=== PATIENT | female | born 1960 | race Caucasian/White ===

== ENCOUNTER 2023-02-23 08:23 | Outpatient (CLI) | payer OTHER, MEDICARE, SELFPAY | END 2023-02-23 08:24 | disposition home or self-care (01) | PROVIDERS: PCP Family Medicine; Visit Provider Family Medicine | DX: M54.16 Radiculopathy, lumbar region (principal); M51.36 Other intervertebral disc degeneration, lumbar region | CPT/HCPCS: 64483; J1100; Q9966 ==

== ENCOUNTER 2023-08-17 12:48 | Outpatient (CLI) | payer OTHER, MEDICARE, SELFPAY | END 2023-08-17 12:49 | disposition home or self-care (01) | LOC: INJ CL 12:50 | PROVIDERS: PCP Family Medicine; Visit Provider Family Medicine | DX: M54.16 Radiculopathy, lumbar region (principal); M51.36 Other intervertebral disc degeneration, lumbar region | CPT/HCPCS: 64483; Q9966 ==

== ENCOUNTER 2023-11-30 07:57 | Outpatient (CLI) | payer OTHER, MEDICARE, SELFPAY | END 2023-11-30 07:58 | disposition home or self-care (01) | LOC: INJ CL 07:59 | PROVIDERS: PCP Family Medicine; Visit Provider Family Medicine | DX: M47.816 Spondylosis without myelopathy or radiculopathy, lumbar region (principal) | CPT/HCPCS: 64493; 64494; Q9966 ==

== ENCOUNTER 2024-05-30 13:45 | Outpatient (CLI) | payer OTHER, MEDICARE, SELFPAY ==
--- OUTSIDE RECORDS SUMMARY | 2024-05-30 07:04 | XMS_ITS | Referral Summary ---
Author Organization [facility] Address [address] [place] [address] Encounter Date(s): 03/16/19 - 03/19/19 [facility] [address] [place] [address]- Encounter Diagnosis Closed displaced trimalleolar fracture of left ankle(Discharge Diagnosis) - 03/17/19 Discharge Disposition: Home Attending Physician: ITZ LOVE MD Admitting Physician: ITZ LOVE MD Vital Signs Most recent to oldest [Reference Range]: 1 2 3 Temperature Temporal [36.3-38 DegC] 36.3 DegC (03/19/19 11:29 AM) 36.5 DegC (03/19/19 7:07 AM) 36.6 DegC (03/19/19 5:00 AM) Heart Rate [50-100 bpm] 92 bpm (03/17/19 6:10 PM) 94 bpm (03/17/19 6:00 PM) 102 bpm *HI* (03/17/19 5:50 PM) Pulse Rate [40-100 bpm] 73 bpm (03/19/19 11:30 AM) 67 bpm (03/19/19 7:08 AM) 74 bpm (03/19/19 5:00 AM) Heart Rhythm Monitored Sinus Rhythm (03/17/19 6:10 PM) Sinus Rhythm (03/17/19 6:00 PM) Sinus Rhythm (03/17/19 5:50 PM) Respiratory Rate [11-21 br/min] 16 br/min (03/19/19 11:29 AM) 16 br/min (03/19/19 7:07 AM) 16 br/min (03/19/19 5:00 AM) Oxymetry Monitoring Spot Check (03/19/19 11:29 AM) Spot Check (03/19/19 7:07 AM) Spot Check (03/19/19 5:00 AM) Oxygen Saturation [89-101 %] 94 % (03/19/19 11:30 AM) 92 % (03/19/19 7:08 AM) 91 % (03/19/19 5:00 AM) End Tidal CO2 0 mmHg (03/19/19 5:00 AM) 0 mmHg (03/18/19 11:00 PM) 0 mmHg (03/18/19 8:00 PM) Oxygen Delivery Room air (03/19/19 11:29 AM) Room air (03/19/19 7:07 AM) Room air (03/19/19 5:00 AM) Oxygen Flow 1 L/min (03/18/19 4:49 AM) 1 L/min (03/17/19 9:00 PM) 1 L/min (03/17/19 8:17 PM) Cuff BP Mean 100 mmHg (03/19/19 11:29 AM) 86 mmHg (03/19/19 7:07 AM) 78 mmHg (03/19/19 5:00 AM) SpO2 Probe Site Hand, left (03/17/19 6:10 PM) Hand, left (03/17/19 6:00 PM) Hand, left (03/17/19 5:50 PM) BP Site Right upper (03/19/19 5:00 AM) Right upper (03/18/19 11:00 PM) Right upper (03/18/19 8:00 PM) Monitor Alarms On (03/17/19 6:10 PM) On (03/17/19 6:00 PM) On (03/17/19 5:50 PM) Vital Signs Note pt working with PT then d/c (03/19/19 1:43 PM) Pt just given pain meds, OT will come back in about 30 mins to work with pt (03/19/19 10:09 AM) changed to RA (03/17/19 9:00 PM) Kyle: Respiratory 2 - Can Deep Breath and Cough Freely (03/17/19 1:03 AM) 2 - Can Deep Breath and Cough Freely (03/17/19 12:58 AM) 2 - Can Deep Breath and Cough Freely (03/17/19 12:56 AM) Kyle: Circulatory 2 - BP w/in 20% of presedation BP (03/17/19 1:03 AM) 2 - BP w/in 20% of presedation BP (03/17/19 12:58 AM) 2 - BP w/in 20% of presedation BP (03/17/19 12:56 AM) Kyle: Consciousness 2 - Fully Awake (03/17/19 1:03 AM) 2 - Fully Awake (03/17/19 12:58 AM) 2 - Fully Awake (03/17/19 12:56 AM) Kyle: O2 Saturation 1 - O2 Sat > 90% on Oxygen (03/17/19 1:03 AM) 1 - O2 Sat > 90% on Oxygen (03/17/19 12:58 AM) 1 - O2 Sat > 90% on Oxygen (03/17/19 12:56 AM) Kyle: Activity 2 - Moves 4 Ext. Volun &/or Commanded (03/17/19 1:03 AM) 2 - Moves 4 Ext. Volun &/or Commanded (03/17/19 12:58 AM) 2 - Moves 4 Ext. Volun &/or Commanded (03/17/19 12:56 AM) Kyle: Calculation 9 (03/17/19 1:03 AM) 9 (03/17/19 12:58 AM) 9 (03/17/19 12:56 AM) Blood Pressure 135/83mmHg (03/19/19 11:29 AM) 119/70mmHg (03/19/19 7:07 AM) 112/61mmHg (03/19/19 5:00 AM) Height 160.02 cm (03/17/19 6:49 PM) 168 cm (03/16/19 8:05 PM) 168 cm (03/16/19 8:01 PM) Weight 99.6 kg (03/19/19 5:00 AM) 102 kg (03/18/19 4:00 AM) 98.8 kg (03/17/19 6:45 PM) CLINICALWEIGHT 98.8 kg (03/17/19 6:49 PM) 84 kg (03/16/19 8:05 PM) 84 kg (03/16/19 8:01 PM) Weight Type Bed Scale (03/19/19 5:00 AM) Bed Scale (03/18/19 4:00 AM) Bed Scale (03/17/19 6:45 PM) Dosing Weight Type Bed Scale (03/17/19 6:49 PM) Emergency Stated / Estimated (03/16/19 8:05 PM) Emergency Stated / Estimated (03/16/19 8:01 PM) BSA calculated 2.1 m2 (03/17/19 6:49 PM) Body Mass Index 38.58 kg/m2 (03/17/19 6:49 PM) 29.76 kg/m2 (03/16/19 8:05 PM) 29.76 kg/m2 (03/16/19 8:01 PM) [place] Body Weight 52.40 kg (03/17/19 6:49 PM) 59.62 kg (03/16/19 8:05 PM) 59.62 kg (03/16/19 8:01 PM) Height Obtained Patient stated (03/17/19 6:49 PM) Patient stated (03/16/19 8:05 PM) Patient stated (03/16/19 8:01 PM) Problem List Diagnosis Diagnosis Type Effective Dates Health Status Clinical Service Informant Closed displaced trimalleolar fracture of left ankle Discharge Diagnosis 03/17/19 Non-Specified Allergies, Adverse Reactions, Alerts No Known Allergies Medications Aspirin Enteric Coated 325 mg oral delayed release tablet 325 mg = 1 Tab(s), Oral, Daily, # 30 Tab(s), Refill(s) 0, Pharmacy: [facility]/pharmacy #[id number] Start Date: 03/19/19 Stop Date: 04/18/19 Status: Ordered CeleBREX 200 mg oral capsule 200 mg = 1 Cap(s), Oral, BID, # 60 Cap(s), Refill(s) 0 Start Date: 03/16/19 Stop Date: 04/15/19 Status: Ordered Cymbalta 60 mg = 1 Cap(s), Oral, Daily, Refill(s) 0 Start Date: 03/17/19 Stop Date: 04/16/19 Status: Ordered gabapentin (Neurontin), 300 mg = 1 Cap(s), Oral, TID, Refill(s) 0 Start Date: 03/16/19 Stop Date: 04/15/19 Status: Ordered gabapentin (Neurontin), 600 mg = 2 Cap(s), Oral, TID, Refill(s) 0 Start Date: 03/16/19 Stop Date: 03/17/19 Status: Completed Misc Prescription Standard wheelchair, See Instructions, with left leg lift, # 1 Each, 0 Refill(s) Start Date: 03/19/19 Status: Or[place] [facility] Rolling knee scooter, See Instructions, Nonweightbearing left foot/ankle. OK to bear weight throughknee, # 1 Each, 0 Refill(s) Start Date: 03/18/19 Status: Ordered [facility] Walker, See Instructions, Disp 1 rolling walker, # 1 Each, 0 Refill(s) Start Date: 03/18/19 Status: Ordered [place] 7.5/325 (HYDROcodone-acetaminophen) 1 Tab(s), Oral, Q6H, PRN PRN Pain, # 30 Tab(s), Refill(s) 0, Pharmacy: [facility]/pharmacy #[id number] Start Date: 03/19/19 Stop Date: 04/18/19 Status: Ordered pravastatin (Pravachol), 10 mg = 1 Tab(s), Oral, HS, Refill(s) 0 Start Date: 03/16/19 Stop Date: 04/15/19 Status: Ordered promethazine 25 mg oral tablet 25 mg = 1 Tab(s), Oral, Q6HRS, PRN as needed for nausea, # 12 Tab(s), Refill(s) 1, Pharmacy: [facility]/pharmacy #[id number] Start Date: 03/19/19 Stop Date: 04/18/19 Status: Ordered traMADol (Ultram), 50 mg = 1 Tab(s), Oral, BID, PRN Pain, Refill(s) 0 Start Date: 03/16/19 Stop Date: 04/15/19 Status: Ordered traZODone 50 mg = 1 Tab(s), Oral, HS Start Date: 03/17/19 Stop Date: 04/16/19 Status: Ordered traZODone 50 mg oral tablet 50 mg = 1 Tab(s), Oral, HS, # 30 Tab(s), Refill(s) 0 Start Date: 03/16/19 Stop Date: 03/17/19 Status: Completed Results Hematology Most recent to oldest [Reference Range]: 1 HGB [12.0-16.0 g/dL] 13.5 g/dL (03/16/19 8:18 PM) HCT [36.0-48.0 %] 40.5 % (03/16/19 8:18 PM) WBC [4.0-11.0 x10^3/uL] 7.9 x10^3/uL (03/16/19 8:18 PM) PLT [139-411 x10^3/uL] 227 x10^3/uL (03/16/19 8:18 PM) RBC [4.20-5.40 x10^6/uL] 4.85 x10^6/uL (03/16/19 8:18 PM) MCV [79.9-97.7 fL] 83.6 fL (03/16/19 8:18 PM) MCH [27.4-33.4 pg] 27.8 pg (03/16/19 8:18 PM) MCHC [32.0-36.0 g/dL] 33.3 g/dL (03/16/19 8:18 PM) MPV [7.9-11.9 fL] 8.6 fL (03/16/19 8:18 PM) RDW [11.5-15.5 %] 13.7 % (03/16/19 8:18 PM) Lymph Auto [24.0-44.0 %] 24.8 % (03/16/19 8:18 PM) Neutro Auto [36.0-66.0 %] 62.8 % (03/16/19 8:18 PM) Sutter Auto [1.0-7.0 %] 9.9 % *HI* (03/16/19 8:18 PM) Eos Auto [0.0-6.0 %] 2.1 % (03/16/19 8:18 PM) Baso Auto [0.0-2.0 %] 0.4 % (03/16/19 8:18 PM) Abs Neutro Auto [1.8-8.0 x10^3/mm^3] 5.0 x10^3/mm^3 (03/16/19 8:18 PM) Abs Lymph Auto [1.0-4.8 x10^3/mm^3] 2.0 x10^3/mm^3 (03/16/19 8:18 PM) Abs Sutter Auto [0.0-0.4 x10^3/mm^3] 0.8 x 10^3/mm^3 *HI* (03/16/19 8:18 PM) Abs Eos Auto [0.0-0.5 x10^3/mm^3] 0.2 x1 0^3/mm^3 (03/16/19 8:18 PM) Abs Baso Auto [0.0-0.2 x10^3/mm^3] 0.0 x 10^3/mm^3 (03/16/19 8:18 PM) PT [9.6-13.2 second(s)] 11.0 second(s) (03/16/19 8:18 PM) INR [1.00-3.00] 0.97 *LOW* (03/16/19 8:18 PM) Chemistry Most recent to oldest [Reference Range]: 1 Sodium [136-145 mmol/L] 142 mmol/L (03/16/19 8:18 PM) Potassium [3.4-4.5 mmol/L] 3.6 mmol/L (03/16/19 8:18 PM) Chloride [96-107 mmol/L] 106 mmol/L (03/16/19 8:18 PM) CO2 [22-30 mmol/L] 23 mmol/L (03/16/19 8:18 PM) Anion Gap [6-16 mmol/L] 13 mmol/L (03/16/19 8:18 PM) Calcium [8.4-10.2 mg/dL] 9.4 mg/dL (03/16/19 8:18 PM) Glucose [65-105 mg/dL] 143 mg/dL *HI* (03/16/19 8:18 PM) BUN [7-17 mg/dL] 26 mg/dL *HI* (03/16/19 8:18 PM) Creatinine [0.70-1.20 mg/dL] .80 mg/dL (03/16/19 8:18 PM) eGFR [>=60 mL/min/1.73m^2] >60 mL/min/1. 73m^2 1 (03/16/19 8:18 PM) eCrCl 84 mL/min 2 *NA* (03/16/19 8:18 PM) 1Result Comment: If the patient is , the result should be multiplied by 1.210. Estimated GFR values of 60 mL/min/1.73 m(sqr) and below have more clinical implications for classification of kidney function than values above this level. The equation has been most extensively evaluated in people with chronic kidney disease and reduced GFR and is less accurate for persons with normal or mildly impaired kidney function. The eGFR equation has not been validated for use outside the age range of 18-70, for women, patients with serious comorbid conditions, or persons with extremes of body size, muscle mass, or nutritional status. Application of the equation to these patient groups may lead to errors in GFR estimation. 2Result Comment: Estimated Creatinine Clearance calculated with Cockroft-Gault formula = 0.85*(140-Age)* Obese DW/72*SrCr. Calculated by Discern Expert at that time using: Obese DW = 59.90 + 0.4 (84 -59.90) kg, SrCr = 0.8 mg/dL. The Cockcroft-Gault equation estimates creatinine clearance (eCrCl). Ph armacokinetics studies over the years have used this equation to determine level of kidney functionfor dosage adjustment in the FDA approved labeling of drugs. As a result, it has become a standard for drug dosing. The MDRD study equation estimates glomerular filtration rate (eGFR). Studies have found that this equation is a more accurate estimate of the glomerular filtration rate than the Cockcroft-Gault equation. As a result, it has become a standard for staging chronic kidney disease. The National Kidney Disease Education Program recommends using either eCrCl or eGFR for drug dosing. However, published studies report that drug dosages determined by the two equations do not agree in 10-40% of cases. For times when the two equations do not agree, choose the dosing regimen that optimizesthe risk:benefit ratio given the patient's specific clinical scenario. Immunizations Given and Recorded Vaccine Date Status Refusal Reason influenza virus vaccine, inactivated 02/28/19 Facundo rded Social History Social History Type Response Smoking Status Never (less than 100 in lifetime) entered on: 03/19/19 Functional Status FUNCTIONAL 03/19/19 Personal Care Assistance Level Moderate assistance Activity Assistance Minimum assistance COGNITIVE 03/19/19 Level of Consciousness Alert, Awake, Follows Commands Orientation Oriented x 4 Affect/Behavior Calm, Cooperative 03/17/19 General Assessment Comment unable to pal fowler left pedal pulse due to splint, cap refill is immediate. 03/17/19 General Assessment WDL Assessment and Plan Extracted from: Title:H & P Author:ITZ LOVE MD Date: Closed displaced trimalleola r fracture of left ankle S82.852A Orders: CT Ext Lower w/o Contrast Lt NPO Addendum by MARK LOVE MD AM on March 17, 2019 08:57:[address] shows a pilon fracture, she will require staged surgery with plating of fibula and ex fix today with 2nd stage being ORIF of the tibia fracture in 1-2 weeks when soft tissue allows. She will undergo the first stage today so she will remain NPO. Hospital Discharge Instructions Patient Education 03/16/2019 19:53:56 Cast or Splint Care Cast or Splint Care Casts and splints support injured limbs and keep bones from moving while they heal. It is importantto care for your cast or splint at home. ?? HOME CARE INSTRUCTIONS ?Keep the cast or splint uncovered during the drying period. It can take 24 to 48 hours to dry if it is made of plaster. A fiberglass cast will dry in less than 1 hour. ?Do not rest the cast on anything harder than a pillow for the first 24 hours. ?Do not put weight on your injured limb or apply pressure to the cast until your health care provider gives you permission. ?Keep the cast or splint dry. Wet casts or splints can lose their shape and may not support the limb as well. A wet cast that has lost its shape can also create harmful pressure on your skin when it dries. Also, wet skin can become infected. ?Cover the cast or splint with a plastic bag when bathing or when out in the rain or snow. If the cast is on the trunk of the body, take sponge baths until the cast is removed. ?If your cast does become wet, dry it with a towel or a blow dryer on the cool setting only. ?Keep your cast or splint clean. Soiled casts may be wiped with a moistened cloth. ?Do not place any hard or soft foreign objects under your cast or splint, such as cotton, toilet paper, lotion, or powder. ?Do not try to scratch the skin under the cast with any object. The object could get stuck inside the cast. Also, scratching could lead to an infection. If itching is a problem, use a blow dryer on a cool setting to relieve discomfort. ?Do not trim or cut your cast or remove padding from inside of it. ?Exercise all joints next to the injury that are not immobilized by the cast or splint. For example, if you have a long leg cast, exercise the hip joint and toes. If you have an arm cast or splint, exercise the shoulder, elbow, thumb, and fingers. ?Elevate your injured arm or leg on 1 or 2 pillows for the first 1 to 3 days to decrease swelling and pain.??It is best if you can comfortably elevate your cast so it is higher than your heart. SEEK MEDICAL CARE IF: ?Your cast or splint cracks. ?Your cast or splint is too tight or too loose. ?You have unbearable itching inside the cast. ?Your cast becomes wet or develops a soft spot or area. ?You have a bad smell coming from inside your cast. ?You get an object stuck under your cast. ?Your skin around the cast becomes red or raw. ?You have new pain or worsening pain after the cast has been applied. SEEK IMMEDIATE MEDICAL CARE IF: ?You have fluid leaking through the cast. ?You are unable to move your fingers or toes. ?You have discolored (blue or white), cool, painful, or very swollen fingers or toes beyond the cast. ?You have tingling or numbness around the injured area. ?You have severe pain or pressure under the cast. ?You have any difficulty with your breathing or have shortness of breath. ?You have chest pain. This information is not intended to replace advice given to you by your health care provider. Make sure you discuss any questions you have with your health care provider. Document Released: 05/14/2001 Document Revised: 03/07/2014 Document Reviewed: 11/23/2013 [employer] Patient Education ??2016 [employer] Medial or Posterior Malleolus Fracture Treated With ORIF, Care After Medial or Posterior Malleolus Fracture Treated With ORIF, Care After Refer to this sheet in the next few weeks. These instructions provide you with information about caring for yourself after your procedure. Your health care provider may also give you more specific instructions. Your treatment has been planned according to current medical practices, but problems sometimes occur. Call your health care provider if you have any problems or questions after your procedure. WHAT TO EXPECT AFTER THE PROCEDURE After your procedure, it is common to have: ?Pain. ?Swelling. HOME CARE INSTRUCTIONS If You Have a Cast: ?Do not stick anything inside the cast to scratch your skin. Doing that increases your risk of infection. ?Check the skin around the cast every day. Report any concerns to your health care provider. You may put lotion on dry skin around the edges of the cast. Do not apply lotion to the skin underneath the cast. Bathing ?Cover the cast with a watertight plastic bag to protect it from water while you take a bath or a shower. Do not let the cast get wet unless you have a waterproof cast. ?Keep the bandage (dressing) dry until your health care provider says it can be removed. Takesponge baths only. Ask your health care provider when you can start showering or taking a bath. Incision Care ?There are many different ways to close and cover an incision, including stitches, skin glue,and adhesive strips. Follow instructions from your health care provider about: ?Incision care. ?Bandage (dressing) changes and removal. ?Incision closure removal. ?Check your incision area every day for signs of infection. Watch for: ?Redness, swelling, or pain. ?Fluid, blood, or pus. Managing Pain, Stiffness, and Swelling ?If directed, apply ice to the injured area. ?Put ice in a plastic bag. ?Place a towel between your skin and the bag. ?Leave the ice on for 20 minutes, 2???3 times per day. ?Move your toes often to avoid stiffness and to lessen swelling. ?Raise the injured area above the level of your heart while you are sitting or lying down. Driving ?Do not drive or operate heavy machinery while taking pain medicine. ?Do not drive while wearing a cast on a hand or foot that you use for driving. Activity ?Return to your normal activities as directed by your health care provider. Ask your health care provider what activities are safe for you. ?Perform [id number] exercises only as directed by your health care provider. Safety ?Do not use the injured limb to support your body weight until your health care provider saysthat you can. Use crutches as directed by your health care provider. General Instructions ?Do not put pressure on any part of the cast until it is fully hardened. This may take several hours. ?Keep your cast clean and dry. ?Do not use any tobacco products, including cigarettes, chewing tobacco, or electronic cigarettes. Tobacco can delay bone healing. If you need help quitting, ask your health care provider. ?Take medicines only as directed by your health care provider. ?Keep all follow-up visits as directed by your health care provider. This is important. SEEK MEDICAL CARE IF: ?You have a fever. ?Your pain medicine is not helping. ?You have redness, swelling, or pain at the site of your incision. ?You have fluid, blood, or pus coming from your incision or seeping through your cast. ?You notice a bad smell coming from the incision or dressings. SEEK IMMEDIATE MEDICAL CARE IF: ?You have chest pain or difficulty breathing. ?You have numbness or tingling in your foot or leg. ?Your foot becomes cold, pale, or blue. This information is not intended to replace advice given to you by your health care provider. Make sure you discuss any questions you have with your health care provider. Document Released: 02/24/2006 Document Revised: 10/01/2015 Document Reviewed: 04/10/2015 [employer] Patient Education ??2016 [employer] Follow Up Care 03/16/2019 19:53:56 With:ITZ LOVE Address: [address] [place] [id number] Business (1) When:As Instructed Comments:Call for appointment.
--- OUTSIDE RECORDS SUMMARY | 2024-05-30 07:04 | XMS_ITS | Referral Summary ---
Author Organization [facility] Address [address] [place] [address] Encounter Date(s): 04/03/19 - 04/04/19 [facility] [address] [place] [address]- Encounter Diagnosis Closed displaced pilon fracture of tibia with routine healing(Discharge Diagnosis) - 04/03/19 Displaced pilon fracture of left tibia, initial encounter for closed fracture (Final) - Presence of other bone and tendon implants(Final) - Other specified postprocedural states(Final) - Discharge Disposition: Home Attending Physician: PRERNA STEVEN MD Referring Physician: PRERNA STEVEN MD Vital Signs Most recent to oldest [Reference Range]: 1 2 3 Temperature Temporal [36.3-38 DegC] 35.7 DegC *LOW* (04/04/19 11:00 AM) 36.6 DegC (04/04/19 7:53 AM) 36.8 DegC (04/04/19 4:00 AM) Heart Rate [50-100 bpm] 80 bpm (04/03/19 5:35 PM) 76 bpm (04/03/19 5:25 PM) 96 bpm (04/03/19 5:15 PM) Pulse Rate [40-100 bpm] 84 bpm (04/04/19 11:00 AM) 81 bpm (04/04/19 7:54 AM) 87 bpm (04/04/19 4:14 AM) Heart Rhythm Monitored Sinus Rhythm (04/03/19 8:00 PM) Sinus Rhythm (04/03/19 5:25 PM) Sinus tach (04/03/19 12:35 PM) Respiratory Rate [11-21 br/min] 16 br/min (04/04/19 11:00 AM) 16 br/min (04/04/19 7:53 AM) 18 br/min (04/04/19 4:00 AM) Oxymetry Monitoring Spot Check (04/04/19 11:00 AM) Spot Check (04/04/19 7:53 AM) Spot Check (04/04/19 4:00 AM) Oxygen Saturation [89-101 %] 99 % (04/04/19 11:00 AM) 92 % (04/04/19 8:18 AM) 93 % (04/04/19 7:54 AM) Oxygen Delivery Room air (04/04/19 11:00 AM) Room air (04/04/19 8:18 AM) Room air (04/04/19 7:53 AM) Oxygen Flow 2 L/min (04/04/19 4:00 AM) 2 L/min (04/03/19 7:21 PM) 3 L/min (04/03/19 5:25 PM) Cuff BP Mean 90 mmHg (04/04/19 7:53 AM) 83 mmHg (04/04/19 4:13 AM) 92 mmHg (04/04/19 2:36 AM) SpO2 Probe Site Hand, left (04/03/19 5:25 PM) Hand, right (04/03/19 12:35 PM) Hand, right (04/03/19 12:27 PM) Monitor Alarms On (04/03/19 5:25 PM) On (04/03/19 4:25 PM) On (04/03/19 4:10 PM) Vital Signs Note Report taken from MADDISON Oconnor. (04/03/19 6:00 PM) REPORT TO FARHAD JOY (04/03/19 12:34 PM) PACU (04/03/19 12:06 PM) Blood Pressure 119/64mmHg (04/04/19 11:00 AM) 122/74mmHg (04/04/19 7:53 AM) 114/67mmHg (04/04/19 4:13 AM) Height 160 cm (04/03/19 8:57 AM) CLINICALWEIGHT 85.5 kg (04/03/19 8:57 AM) Dosing Weight Type Standing Scale (04/03/19 8:57 AM) Body Mass Index 33.4 kg/m2 (04/03/19 8:57 AM) [place] Body Weight 52.38 kg (04/03/19 8:57 AM) Height Obtained Patient stated (04/03/19 8:57 AM) Problem List Condition Effective Dates Status Health Status Inform ant Postoperative visit(Confirmed) Active Diagnosis Diagnosis Type Effective Dates Health Status Cl inical Service Informant Closed displaced pilon fracture of tibia with routine healing Discharge Diagnosis 04/03/19 Non-Specified Allergies, Adverse Reactions, Alerts Substance Reaction Severity Status Ancef Rash Active Medications aspirin 81 mg oral tablet 81 mg = 1 Tab(s), Oral, BID, # 60 Tab(s), Refill(s) 0, Pharmacy: [facility] Start Date: 04/03/19 Stop Date: 05/03/19 Status: Ordered cephalexin 500 mg oral capsule 500 mg = 1 Cap(s), Oral, Q8HRS, X 10 Day(s), # 30 Cap(s), Refill(s) 0, Pharmacy: [facility] Start Date: 04/03/19 Stop Date: 04/13/19 Status: Ordered [place] 10/325 (HYDROcodone-acetaminophen) See Instructions, PRN PRN Pain, 1/2 to 1 Tab(s) Oral Q6H, # 20 Tab(s), Refill(s) 0, Pharmacy: [facility] Start Date: 04/04/19 Stop Date: 04/11/19 Status: Ordered [place] 10/325 (HYDROcodone-acetaminophen) 1 Tab(s), Oral, Q6H, PRN PRN Pain, Not to exceed 4 tabs/24 hours = 40 Morphine mg Equivalents, # 30Tab(s), Refill(s) 0, Pharmacy: [facility] Start Date: 04/03/19 Stop Date: 04/03/19 Status: Discontinued Immunizations Given and Recorded Vaccine Date Status Refusal Reason influenza virus vaccine, inactivated 02/28/19 Facundo rded Social History Social History Type Response Smoking Status Never (less than 100 in lifetime) entered on: 03/30/19 Functional Status FUNCTIONAL 04/04/19 Activity Assistance One person assist 04/04/19 Personal Care Assistance Level Minimal a ssistance COGNITIVE 04/04/19 Affect/Behavior Calm, Appropriate, Cooperative 04/04/19 Level of Consciousness Alert, Awake, Follows Commands Orientation Oriented x 4 04/03/19 General Assessment Comment left foot pin k and warm Hospital Discharge Instructions Patient Education 03/30/2019 11:05:29 Preventing Constipation After Surgery Preventing Constipation After Surgery Constipation is when a person has fewer than 3 bowel movements a week; has difficulty having a bowel movement; or has stools that are dry, hard, or larger than normal. Many things can make constipation likely after surgery. They include: ?Medicines, especially numbing medicines (anesthetics) and very strong pain medicines called narcotics. ?Feeling stressed because of the surgery. ?Eating different foods than normal. ?Being less active. Symptoms of constipation include: ?Having fewer than 3 bowel movements a week. ?Straining to have a bowel movement. ?Having hard, dry, or xukqmo-axfr-suqavz stools. ?Feeling full or bloated. ?Having pain in the lower abdomen. ?Not feeling relief after having a bowel movement. HOME CARE INSTRUCTIONS Diet ?Eat foods that have a lot of fiber. These include fruits, vegetables, whole grains, and beans. Limit foods high in fat and processed sugars. These include finnish fries, hamburgers, cookies, and candy. ?Take a fiber supplement as directed. If you are not taking a fiber supplement and think thatyou are not getting enough fiber from foods, talk to your health care provider about adding a fibersupplement to your diet. ?Drink clear fluids, especially water. Avoid drinking alcohol, caffeine, and soda. These can make constipation worse. ?Drink enough fluids to keep your urine clear or pale yellow. Activity ?After surgery, return to your normal activities slowly or when your health care provider says it is okay. ?Start walking as soon as you can. Try to go a little farther each day. ?Once your health care provider approves, do some sort of regular exercise. This helps prevent constipation. Bowel Movements ?Go to the restroom when you have the urge to go. Do not hold it in. ?Try drinking something hot to get a bowel movement started. ?Keep track of how often you use the restroom. If you miss 2???3 bowel movements, talk to your health care provider about medicines that prevent constipation. Your health care provider may suggest a stool softener, laxative, or fiber supplement. ?Only take plic-mam-npcrduy or prescription medicines as directed by your health care provider. ?Do not take other medicines without talking to your health care provider first. If you become constipated and take a medicine to make you have a bowel movement, the problem may get worse. Other kinds of medicine can also make the problem worse. SEEK MEDICAL CARE IF: ?You used stool softeners or laxatives and still have not had a bowel movement within 24???48hours after using them. ?You have not had a bowel movement in 3 days. SEEK IMMEDIATE MEDICAL CARE IF: ?Your constipation lasts for more than 4 days or gets worse. ?You have bright red blood in your stool. ?You have abdominal or rectal pain. ?You have very bad cramping. ?You have thin, pencil-like stools. ?You have unexplained weight loss. ?You have a fever or persistent symptoms for more than 2???3 days. ?You have a fever and your symptoms suddenly get worse. This information is not intended to replace advice given to you by your health care provider. Make sure you discuss any questions you have with your health care provider. Document Released: 09/11/2013 Document Revised: 06/07/2015 Document Reviewed: 09/11/2013 Else[employer] Interactive Patient Education ??2016 [employer] Tibial Fracture, Adult Tibial Fracture, Adult A tibial fracture is a break in the larger bone of your lower leg (tibia). This bone is also calledthe quintero bone. CAUSES ?Low-energy injuries, such as a fall from ground level. ?High-energy injuries, such as motor vehicle injuries or high-speed sports collisions. RISK FACTORS ?Jumping activities. ?Repetitive stress, such as long-distance running. ?Participation in sports. ?Osteoporosis. ?Advanced age. ?? SIGNS AND SYMPTOMS ?Pain. ?Swelling. ?Inability to put weight on your injured leg. ?Bone deformities at the site of your injury. ?Bruising. ?? DIAGNOSIS A tibial fracture can usually be diagnosed using X-rays. TREATMENT A tibial fracture will often be treated with simple immobilization. A cast or splint will be used on your leg to keep it from moving while it heals. If the injury caused parts of the bone to move outof place, your health care provider may reposition those parts before putting on your cast or splint. The cast or splint will remain in place until your health care provider thinks the bone has healed well enough. Then you can begin dkyhs-gn-jrlaab exercises to regain your knee motion. For severe injuries, surgery is sometimes needed to insert plates or screws into the injured area. HOME CARE INSTRUCTIONS ?If you have a plaster or fiberglass cast: ?Do not try to scratch the skin under the cast using sharp or pointed objects. ?Check the skin around the cast every day. You may put lotion on any red or sore areas. ?Keep your cast dry and clean. ?If you have a plaster splint: ?Wear the splint as directed. ?Loosen the elastic around the splint if your toes become numb, tingle, or turn cold or blue. ?Do not put pressure on any part of your cast or splint until it is fully hardened. ?Use a plastic bag to protect your cast or splint during bathing. Do not lower the cast or splint into water. ?Use crutches as directed. ?Take medicines only as directed by your health care provider. ?Keep all follow-up visits as directed by your health care provider. This is important. ?? SEEK MEDICAL CARE IF: ?Your pain is becoming worse rather than better or is not controlled with medicines. ?You have increased swelling or redness in your foot. ?You begin to lose feeling in your foot or toes. ?? SEEK IMMEDIATE MEDICAL CARE IF: ?Your foot or toes on the injured side feel cold or turn blue. ?You develop severe pain in your injured leg, especially if the pain is increased with movement of your toes. ?? MAKE SURE YOU: ?Understand these instructions. ?Will watch your condition. ?Will get help right away if you are not doing well or get worse. ?? This information is not intended to replace advice given to you by your health care provider. Make sure you discuss any questions you have with your health care provider. Document Released: 02/09/2002 Document Revised: 10/01/2015 Document Reviewed: 07/11/2014 [employer] Interactive Patient Education ??2016 [employer] Tibial Plateau Fracture Treated With Open Reduction, Care After Tibial Plateau Fracture Treated With Open Reduction, Care After Refer to this sheet in [...] THE PROCEDURE After your procedure, it is typical to have the following: ?Pain. ?Swelling. ?Stiffness. ?Tingling or numbness. HOME CARE INSTRUCTIONS If You Have a Brace: ?Wear it as directed by your health care provider. ?Tell your health care provider if it becomes loose or feels uncomfortable. Bathing ?Keep your bandage (dressing) dry until your health care provider says that it can be removed. Take sponge baths only. Ask the surgeon when you can start showering and bathing. Managing Pain, Stiffness, and Swelling ?If directed, apply ice to the injured area. ?Put ice in a plastic bag. ?Place a towel between your skin and the bag. ?Leave the ice on for 20 minutes, 2???3 times per day. ?Raise the injured area above the level of your heart while you are sitting or lying down. Driving ?Do not drive or operate heavy machinery while taking pain medicine. ?Do not drive while wearing a brace on a leg that you use for driving. Activity ?Return to your normal activities as directed by your health care provider. Ask your health care provider what activities are safe for you. ?Perform cwkmc-ln-xklfey exercises only as directed by your health care provider. Safety ?Do not use the injured limb to support your body weight until your health care provider saysthat you can. Use crutches or a walker as directed by your health care provider. General Instructions ?Do not use any tobacco products, including cigarettes, chewing tobacco, or electronic cigarettes. Tobacco can delay bone healing. If you need help quitting, ask your health care provider. ?There are many different ways to close and cover an incision, including stitches (sutures), skin glue, and adhesive strips. Follow your health care provider's instructions about: ?Incision care. ?Bandage (dressing) changes and removal. ?Incision closure removal. ?Check your incision area every day for signs of infection. Watch for redness, swelling, or discharge. ?Take medicines only as directed by your health care provider. ?Keep all follow-up visits as directed by your health care provider. This is important. SEEK MEDICAL CARE IF: ?You have a fever. ?Your pain medicine is not helping. ?You have pain, warmth, and tenderness in your lower leg (calf). ?You have bleeding that comes through your dressing. SEEK IMMEDIATE MEDICAL CARE IF: ?You have drainage, redness, swelling, or pain at your incision. ?You notice a bad smell coming from the incision area or the dressing. ?The edges of your incision come apart after the stitches or vy have been removed. ?You have trouble breathing. ?You have chest pain. This information is not intended to replace advice given to you by your health care provider. Make sure you discuss any questions you have with your health care provider. Document Released: 12/04/2005 Document Revised: 06/07/2015 Document Reviewed: 01/02/2015 Elsevier Interactive Patient Education ??2016 [employer] Tibial Plateau Fracture Treated With Open Reduction Tibial Plateau Fracture Treated With Open Reduction A tibial plateau fracture is a break in the bone that forms the bottom of your knee joint (tibia orshin bone). The lower end of your thigh bone (femur) forms the upper surface of your knee joint. The top of the tibia has a flat, smooth surface (tibial plateau). This part of your quintero bone is made up of softer bone than the shaft of your quintero bone. If a strong force shoves your femur down into your tibial plateau, the tibial plateau can collapse or break away at the edges. A displaced tibial plateau fracture means that one or more pieces of your tibial plateau have been moved out of normal position. This type of fracture is treated with open reduction. Open reduction is a type of surgery to repair broken bones that have been moved out of place (displaced fracture). The bone pieces are held in place with screws or other types of surgical hardware. This procedure helps bones to heal properly. It also helps to prevent severe arthritis from developing in the injured leg. LET YOUR HEALTH CARE PROVIDER KNOW ABOUT: ?Any allergies you have. ?All medicines you are taking, including vitamins, herbs, eye drops, creams, and xfye-fok-vsszaja medicines. ?Previous problems you or members of your family have had with the use of anesthetics. ?Any blood disorders you have. ?Previous surgeries you have had. ?Medical conditions you have. RISKS AND COMPLICATIONS Generally, this is a safe procedure. However, problems can occur and include: ?Excessive bleeding. ?Damage to blood vessels that supply the knee. ?Infection. This can cause the screws or surgical hardware to loosen and be removed. ?Improper healing. This can result in an unstable knee. ?Knee stiffness. ?Blood clot. This can form in the leg and travel to the lungs. ?Knee pain. ?Nerve damage. BEFORE THE PROCEDURE ?Ask your health care provider about: ?Changing or stopping your regular medicines. This is especially important if you are taking diabetes medicines or blood thinners. ?Taking medicines such as aspirin and ibuprofen. These medicines can thin your blood. Do not take these medicines before your procedure if your health care provider instructs you not to. ?Follow your health care provider's restrictions on eating and drinking if you will be getting medicine that makes you go to sleep during your procedure (general anesthetic). PROCEDURE ?An IV tube may be inserted into a vein. ?You will be given one of the following: ?A medicine that numbs the region of your body where the surgery will take place (regional anesthetic). ?A medicine that makes you go to sleep (general anesthetic). ?The skin over your knee??will be cleaned with a germ-killing (antiseptic) solution. Your hiparea will also be cleaned if your fracture requires a bone graft that is taken from your hipbone. ?The surgeon will make a cut (incision) through your skin to expose the areas of the fracture. ?The broken bones will be returned to their normal positions. The surgeon will use screws ruth metal plate or different types of wiring to hold the bones in place. ?If a bone graft is used, a small incision might be made over your hip to remove a piece of bone and place it into your knee for support. ?The surgeon will close all incisions with stitches (sutures) or vy. ?A bandage (dressing) will be placed over your incisions. AFTER THE PROCEDURE ?You will stay in a recovery room. Your blood pressure, heart rate, breathing rate, and bloodoxygen level will be monitored often until the medicines you were given have worn off. ?It is normal to have some pain. You will be given medicine for pain relief. ?You may have physical therapy while you are in the hospital. ?You may need to wear a hinged knee brace. This lets your health care provider gently move your knee to prevent stiffness. This information is not intended to replace advice given to you by your health care provider. Make sure you discuss any questions you have with your health care provider. Document Released: 03/01/2015 Document Reviewed: 03/01/2015 [employer] Patient Education ??2016 [employer] Venous Thromboembolism Prevention Venous Thromboembolism, Prevention A venous thromboembolism is a blood clot that forms in a vein. A blood clot in a deep vein is called a deep venous thrombosis (DVT). A blood clot in the lungs is called a pulmonary embolism (PE). Blood clots are dangerous and can cause . Blood clots can form in the: ?Lungs. ?Legs. ?Arms. CAUSES ?A blood clot can form in a vein from different conditions. A blood clot can develop due to: ?Blood flow within a vein that is sluggish or very slow. ?Medical conditions that make the blood clot easily. ?Vein damage. RISK FACTORS Risk factors can increase your risk of developing a blood clot. Risk factors can include: ?Smoking. ?Obesity. ?Age. ?Immobility or sedentary lifestyle. ?Sitting or standing for long periods of time. ?Chronic or long-term bedrest. ?Medical or past history of blood clots. ?Family history of blood clots. ?Hip, leg, or pelvis injury or trauma. ?Major surgery, especially surgery on the hip, knee, or abdomen. ? and childbirth. ? control pills and hormone replacement therapy. ?Medical conditions such as ?Peripheral vascular disease (PVD). ?Diabetes. ?Cancer. SYMPTOMS Symptoms of VTE can depend on where the clot is located and if the clot breaks off and travels to another organ. Sometimes, there may be no symptoms. ?DVT symptoms can include: ?Swelling of the leg or arm, especially on one side. ?Warmth and redness of the leg or arm, especially on one side. ?Pain in an arm or leg. Leg pain may be more noticeable or worse when standing or walking. ?PE symptoms can include: ?Shortness of breath. ?Coughing. ?Coughing up blood or blood-tinged mucus (hemoptysis). ?Chest pain or chest pain with deep breaths (pleuritic chest pain). ?Apprehension, anxiety, or a feeling of impending doom. ?Rapid heartbeat. PREVENTION ?Exercise regularly. Take a brisk 30 minute walk every day. Staying active and moving around can help prevent blood clots. ?Avoid sitting or lying in bed for long periods of time. Change your position often, especially during a long trip. ?Women, especially those over the age of 35, should consider the risks and benefits of takingestrogen medicines. This includes control pills and hormone replacement therapy. ?Do not smoke, especially if you take estrogen medicines. If you smoke, talk to your caregiver on how to quit. ?Eat plenty of fruits and vegetables. Ask your caregiver or dietitian if there are foods you should avoid. ?Maintain a weight as suggested by your caregiver. ?Wear loose-fitting clothing. Avoid constrictive or tight clothing around your legs or waist. ?Try not to bump or injure your legs. Avoid crossing your legs when you are sitting. ?Do not use pillows under your knees unless told by your caregiver. ?Take all medicines that your caregiver prescribes you. ?Wear special stockings (compression stockings or SUZANNE hose) if your caregiver prescribes them. ?Wearing compression stockings (support hose) can make the leg veins more narrow. This increases blood flow in the legs and can help prevent blood clots. ?It is important to wear compression stockings correctly. Do not let them bunch up when you arewearing them. TRAVEL Long distance travel can increase the risk of a blood clot. To prevent a blood clot when traveling: ?You should exercise your legs by walking or by pumping your muscles every hour. To help prevent poor circulation on long trips, stand, stretch, and walk up and down the aisle of your airplane,train, or bus as often as possible to get the blood moving. ?Do squats if you are able. If you are unable to do squats, raise your foot on the balls of your feet and tighten your lower leg muscles (particularly the calve muscles) while seated. Pointing (flexing and extending) your toes while tightening your calves while seated are also good exercises to do every hour during long trips. They help increase blood flow and reduce risk of DVT. ?Stay well hydrated. Drink water regularly when traveling, especially when you are sitting orimmobile for long periods of time. ?Use of drugs to prevent DVT during routine travel is not generally recommended. Before taking any drugs to reduce risk of DVT, consult your caregiver. SURGERY AND HOSPITALIZATION ?People who are at high risk for a blood clot may be given a blood thinning medicine (anticoagulant) when they are hospitalized even if they are not going to have surgery. ?A long trip prior to surgery can increase the risk of a clot for patients undergoing hip andknee replacements. Talk to your caregiver about travel plans before your surgery. ?After hip or knee surgery, your caregiver may give you anticoagulants to help prevent blood clots. ?Anticoagulants may be given to people at high risk of developing thromboembolism, before, during, or sometimes after surgery, including people with clotting disorders or with a history of past thromboembolism. TRAVEL AFTER SURGERY ?In orthopedic surgery, the cutting of bones prompts the body to increase clotting factors inthe blood. Due to the size of the bones involved in hip and knee replacements, there is a higher risk of blood clotting than other orthopedic surgeries. ?There is a risk of clotting for up to 4???6 weeks after surgery. Flying or traveling long distances can increase your risk of a clot. As a result, those who travel long distances may need additional preventive measures after their procedure. ?Drink only non-alcoholic beverages during your flight, train, or car travel. Alcohol can dehydrate you and increase your risk of getting blood clots. SEEK IMMEDIATE MEDICAL CARE IF: ?You develop chest pain. ?You develop severe shortness of breath. ?You have breathing problems after traveling. ?You develop swelling or pain in the leg. ?You begin to cough up bloody mucus or phlegm (sputum). ?You feel dizzy or faint. This information is not intended to replace advice given to you by your health care provider. Make sure you discuss any questions you have with your health care provider. Document Released: 05/05/2010 Document Revised: 02/08/2013 Document Reviewed: 09/11/2015 [employer] Patient Education ??2016 [employer] Follow Up Care 03/30/2019 11:05:29 With:ITZ LOVE Address: [address] [place] [address] [facility] (1) When:As Instructed Comments:Patient/family to call for appointment
== END 2024-05-30 13:46 | disposition home or self-care (01) ==
LOC: INJ CL 13:46
PROVIDERS: PCP Family Medicine; Visit Provider Family Medicine
DX: M47.816 Spondylosis without myelopathy or radiculopathy, lumbar region (principal)
CPT/HCPCS: 64493; 64494; J0702; Q9966

== ENCOUNTER 2025-04-20 17:07 | Emergency (ER) | payer MEDICARE, OTHER, SELFPAY ==
--- OUTSIDE RECORDS SUMMARY | 2025-03-21 01:45 | XMS_ITS | Continuity of Care Document ---
Author Organization [facility] enter Address [address] [place] [address] 11 [facility] [address] [place] [address] Phone Care Team Providers Care Mission Analyst Name Role Phone [facility] Unavailable Unava ilable Procedures Procedure Date IMPLANT NEUROELECTRODES IMPLANT NEUROELECTRODES INSRT/REDO SPINE N GENERATOR Implt neurostim elctr each Imp neurosti pls gn any type Inj, bupivacaine liposome Sales tax IMPLANT NEUROELECTRODES IMPLANT NEUROELECTRODES Implt neurostim elctr each Sales tax Advance Directives Directive Yes / No Effective Date File Name No Information Encounters Encounter Description Practice Location Reason(s) For Visit Diagnoses Date Provider Providers Copied on Encounter [facility], [address] [place] [address] 11 [facility] [address], [place], [id number], tel:[phone] [place] [address] No Information [facility]. [address] [place] [address] 11 [facility] [address], [place], [id number], [place]. tel:[phone] Referring Provider: Curly Sanchez, [address], [place], [address] . tel:[phone] [facility], [address] [place] [address] 11 [facility] [address], [place], [id number], tel:[phone] [place] [address] No Information 5 [facility]. [address] [facility] [address], [place], [place], [id number], [place]. tel:[phone] Referring Provider: Curly Sanchez, [address], [place], [address] . tel:[phone] Family History Family Member Type Diagnosis Age At Onset No Information Payers Payer name Insurance type Covered libertarian ID Authorrakesha lorraine(s) [id number] Social History Type Description Quantity Date Captured Comments Sex Female Smoking Status No Information Chief Complaint And Reason For Visit No Information Reason For Referral Reason For Referral No Information History Of Present Illness Encounter Date Complaint History Of Prese nt Illness No Information Functional Status Date Functional Assessmen t No Information Instructions Date Instruction Additional Infor mation No Information Assessments Type Assessment Date No Information Patient Care Teams Name Effective Dates (start - stop) Status Members No Information
--- OUTSIDE RECORDS SUMMARY | 2025-03-23 01:38 | XMS_ITS | Continuity of Care Document ---
Author Organization [facility] Address [address] [place] [address] Care Team Providers Care Horn Player Name Role Phone Manuel Ballesteros CRNA Unavailable Unavailable Procedures Procedure Date ANESTH, HEAD/NECK/PTRUNK Percutaneous Image guided neuromodulatio n or intra Advance Directives Directive Yes / No Effective Date File Name No Information Encounters Encounter Description Practice Location Reason(s) For Visit Diagnoses Date Provider Providers Copied on Encounter [facility], [address] [place] [address], [id number], [facility] No Information 5 Favian Jackson. [address] [place] [address], [id number] , . tel:[phone] Referring Provider: [address] [place] [address], [address] . tel:[phone] [facility], [address] [place] [address], [id number], [facility] No Information Jan-0 5 Favian Jackson. [address] [place] [address], [id number] , . [phone] Referring Provider: Lucy [address] [place] [address], [address] . tel:[phone] Family History Family Member Type Diagnosis Age At Onset No Information Payers Payer name Insurance type Covered green party ID Authoriza lorraine(s) [id number] Social History Type Description Quantity Date Captured [...]
--- OUTSIDE RECORDS SUMMARY | 2025-04-20 03:00 | XMS_ITS | Continuity of Care Document ---
Author Organization [facility] jose miguel Address [address] [facility] ADITYA [place] [address] Phone Care Team Providers Care Gun Examiner Name Role Phone Will Roly HAYES Unavailable Unavailabl e Allergies, Adverse Reactions, Alerts Substance Reaction Status Criticality ROSUVASTATIN CALCIUM Active No Info rmation ibuprofen Gastric ulcer Active No Information Medications Medication Instructions Dosage Effective Dates (start - stop) Status Comments gabapentin 300 mg capsule take 1 capsule by oral route 3 times every day as needed 300 MG - Active multivitamin tablet take 1 tablet by oral route every day with food 1 tablet - Active pantoprazole 40 mg tablet,delayed release take 1 tablet by oral route 2 times every day 40 MG - Active pregabalin 75 mg capsule take 1 capsule by oral route 2 times every day 75 MG - Active resveratrol 100 mg capsule Take 1 cap orally daily - Active turmeric root extract 150 mg-arron root extract 25 mg chewable tablet - Active lidocaine 5 % topical patch Apply to intact skin to cove most painful area for max 12 hr per 24 hour period - Active Acetaminophen PM Extra Strength 25 mg-500 mg tablet take 2 tablet by oral route every day at bedtime as needed 2.00 tablet - Active tramadol 50 mg tablet take 2 tablet by oral route every 8 hours as needed 100 MG - Active Cymbalta 60 mg capsule,delayed release take 1 capsule by oral route every day 60 MG - Active gabapentin 600 mg tablet take 1 tablet by oral route 3 times every day 600 MG - Active trazodone 50 mg tablet take 1 tablet by oral route every day at bedtime 50 MG - Active Tylenol 8 Hour 650 mg tablet,extended release take 2 tablet by oral route every 8 hours as needed swallowing whole with water. Do not break, crush, dissolve and/or chew. 1300 MG - Active Procedures Procedure Date No Charge For Visit Per Prov OFFICE/OUTPATIENT VISIT, EST No Charge For Visit Per Prov [employer] [place] No Charge For Visit Per Prov No Charge For Visit Per Prov Lower Back LSO Brace IMPLANT NEUROELECTRODES IMPLANT NEUROELECTRODES INSRT/REDO SPINE N GENERATOR [employer] No Charge For Visit Per Prov No Charge For Visit Per Prov SCS Lead Pull Satellite Lower Back LSO Brace ORTHOTIC MGMT AND TRAINING Lower Back LSO Brace [employer] IMPLANT NEUROELECTRODES IMPLANT NEUROELECTRODES [employer] No Charge For Visit Per Prov PT EVAL MOD COMPLEX 30 MIN [employer] OFFICE/OUTPATIENT VISIT, EST [facility] OFFICE/OUTPATIENT VISIT, EST [facility] ROUTINE BLOOD DRAW Drug Urine Toxology With Chromatography OFFICE/OUTPATIENT VISIT, NEW DAST 15-30 MIN [employer] Advance Directives Directive Yes / No Effective Date File Name No Information Encounters Encounter Description Practice Location Reason(s) For Visit Diagnoses Date Provider Providers Copied on Encounter [facility], [address], [id number] , tel:[phone] [facility] [place] Radiculopathy, lumbar regionPostlaminec radha syndrome, not elsewhere classified Rafael Dunham. [address] [place], [id number], [place]. tel:[phone] Referring Provider: Soren Rizo [facility] [address] [place], [address]. tel:[phone] OFFICE/OUTPA TIENT VISIT, EST [facility], [address] [place] [address], [id number] , [place] [phone] [facility] low back pain (chief complaint) Postlaminectomy syndrome, not elsewhere classifiedRadicul opathy, lumbar region Nov-0 5-202 5 Nyongesa Pooja. [address] [facility] [address] [place] [address], [id number], [place]. tel:[phone] Referring Provider: Soren Rizo [facility] [address] [place], [address]. tel:[phone] [facility], [address] [place] [address], [id number] , [place] tel:[phone] [facility] low back pain (chief complaint) Postlaminectomy syndrome, not elsewhere classifiedRadicul opathy, lumbar region Feb-2 9- 5 Nyongesa Pooja. [address] [facility] [address], [id number], [place]. tel:[phone] Referring Provider: Roly Styles, [address] [place] [address], [address]. tel:[phone] [facility], [address] [place] [address], [id number] , [place] tel:[phone] [facility] Low back pain, unspecifiedOther acute postprocedural painRadiculopathy , lumbar region Feb-2 2- 5 Nyongesa Pooja. [address], [id number], [place]. tel:[phone] Referring Provider: Soren Rizo [facility] [address] [place], [address]. tel:[phone] [facility], [address] [place] [address], [id number] , [place] tel:[phone] [facility] Postlaminectomy syndrome, not elsewhere classifiedRadicul opathy, lumbar region Oct-2 2-202 [address], [address], [place], [place], [id number], [place]. tel:[phone] Referring Provider: Soren Rizo [facility] [address] [place], [address]. [phone] [facility], [address] [place] [address], [id number] , [place] tel:[phone] [facility] Postlaminectomy syndrome, not elsewhere classified Feb- 3-202 5 Jamie Patton. [address] [facility] [address] [place] [address], [id number], [place]. tel:[phone] Referring Provider: Soren Rizo [facility] [address] [place], [address]. [phone] [facility], [address] [place] [address], [id number] , [place] tel:[phone] [facility] low back pain (chief complaint) Postlaminectomy syndrome, not elsewhere classifiedRadicul opathy, lumbar regionLow back pain, unspecifiedOther acute postprocedural pain Sep-0 4-202 5 Yarachel Rawls. [address], [address], [place], [place], [id number], [place]. tel:[phone] Referring Provider: Soren Rizo [facility] [address] [place], [address]. tel:[phone] [facility], [address] [place] [address], [id number] , [place] tel:[phone] [facility] No Information Sep-0 4-202 5 Daniel Rawls. [address], [address], [place], [place], [id number], [place]. tel:[phone] Referring Provider: Soren Rizo [facility] [address] [place], [address]. tel:[phone] [facility], [address] [facility] [place], [id number] , [place] tel: [phone] [facility] Postlaminectomy syndrome, not elsewhere classifiedRadicul opathy, lumbar region 5 Shannanrachel Rawls. [address], [address], [place], [place], [id number], [place]. tel:[phone] Referring Provider: Soren Rizo [facility] [address] [place], [address]. tel:[phone] [facility], [address] [place] [address], [id number] , [place] tel: [phone] [facility] Postlaminectomy syndrome, not elsewhere classifiedRadicul opathy, lumbar region 5 Dayanfabian Patton. [address], [place], [place], [id number], [place]. tel:[phone] [facility] [address] [place], [address]. tel:[phone] [facility], [address] [place] [address], [id number] , [place] tel: [phone] [facility] Depressive Disorder Due to Another Medical Condition, With depressive features 5 Naomie Rollins. [address] [facility] [place], [id number], [place]. tel:[phone] [facility], [address] [facility] [place], [id number] , [place] tel:[phone] [facility] lumbago (chief complaint) Postlaminectomy syndrome, not elsewhere classified 5 Nael Damon. [address] [facility] [place], [id number], [place]. tel:[phone] Referring Provider: Soren Rizo [facility] [address] [place], [address]. tel:[phone] OFFICE/OUTPA TIENT VISIT, [facility], [address] [place], [place], [id number] , [place] [phone] [facility] low back pain (chief complaint) Postlaminectomy syndrome, not elsewhere classifiedRadicul opathy, lumbar region 0 5 Rafael Dunham. [address] [facility] [place], [id number], [place]. tel:[phone] Referring Provider: Soren Rizo [facility] [address] [place], [address]. tel:[phone] OFFICE/OUTPA TIENT VISIT, [facility], [address] [place] [address], [id number] , [place] [phone] [facility] low back pain (chief complaint) watermelon inspector (current) use of opiate analgesicPostlami nectomy syndrome, not elsewhere classifiedRadicul opathy, lumbar regionOther intervertebral disc degeneration, lumbar regionChronic pain syndrome 1 Jamie Patton. [address] [facility] [address], [place], [id number], [place]. tel:[phone] Referring Provider: Soren Rizo [facility] [address] [place], [address]. tel:[phone] [facility], [address] [place] [address], [id number] , [place] tel:[phone] [facility] Encounter for therapeutic drug level monitoringLong term (current) use of opiate analgesic 1 Jamie Patton. [address] [facility] [address], [place], [id number], [place]. tel:[phone] Referring Provider: Soren Rizo [facility] [address] [place], [address]. tel:[phone] OFFICE/OUTPA TIENT VISIT, [facility], [address] [facility] [place], [id number] , [place] [phone] [facility] [place] low back pain (chief complaint) Postlaminectomy syndrome, not elsewhere classifiedRadicul opathy, lumbar regionOther intervertebral disc degeneration, lumbar regionChronic pain syndromeEncounter for screening for other disorderEncounter for therapeutic drug level monitoringLong term (current) use of opiate analgesic Dayanfabian Patton. [address] [facility] [address], [place], [place], [id number], [place]. tel:[phone] Referring Provider: Soren Rizo [facility] [address] [facility], [place], [address]. tel:[phone] Family History Family Member Type Diagnosis Age At Onset No Information Payers Payer name Insurance type Covered constitution party ID Preethi peters(s) [id number] Social History Type Description Quantity Date Captured Comments Alcohol Use Details Unknown Caffeine Use Details Unknown Tobacco Use Status No Information Smoking Status No Information Sex Female Chief Complaint And Reason For Visit No Information Reason For Referral Reason For Referral No Information Plan Of Treatment Date Type Action Status Goal Hepatitis C screening. Due o n due Goal FIT-DNA. Due on due Goal PHQ-9. Due on du e Goal Medication Reconciliation. D ue on due Goal FIT. Due on due Goal Unhealthy drug use screening . Due on due Goal Height. Due on d ue Goal Tobacco screening. Due on due Goal HPV. Due on due Goal Tobacco Use. Due on due Goal Weight. Due on d ue Goal ALT (SGPT). Due on due Goal UDT. Due on due Goal HAT STOCK LAMINATING MACHINE OPERATOR Paperwork. Due on due Goal OARS. Due on due Goal Order Annual PT. Due on due Goal CT-Colonography. Due on due Goal Update Social History. Due o n due Goal Review Allergy List. Due on due Goal AST (SGOT). Due on due Goal Creatinine. Due on due Goal LADLE FILLER Scanned. Due on due Goal OARS. Due on due Goal Tobacco Use. Due on due Goal Order Annual PT. Due on due Goal Hepatitis C screening. Due o n due Goal Tobacco screening. Due on due Goal Medication Reconciliation. D ue on due Goal Weight. Due on d ue Goal CT-Colonography. Due on due Goal Update Social History. Due o n due Goal FIT-DNA. Due on due Goal FIT. Due on due Goal PHQ-9. Due on du e Goal HPV. Due on due Goal LADLE FILLER Scanned. Due on due Goal HAT STOCK LAMINATING MACHINE OPERATOR Paperwork. Due on due Goal ALT (SGPT). Due on due Goal Creatinine. Due on due Goal UDT. Due on due Goal AST (SGOT). Due on due Goal Unhealthy drug use screening . Due on due Goal Review Allergy List. Due on due Goal Height. Due on d ue Goal Tobacco screening. Due on due Goal Medication Reconciliation. D ue on due Goal Update Social History. Due o n due Goal Weight. Due on d ue Goal FIT-DNA. Due on due Goal Tobacco Use. Due on due Goal Height. Due on d ue Goal Unhealthy drug use screening . Due on due Goal CT-Colonography. Due on due Goal Hepatitis C screening. Due o n due Goal HPV. Due on due Goal Creatinine. Due on due Goal OARS. Due on due Goal LADLE FILLER Scanned. Due on due Goal Order Annual PT. Due on due Goal ALT (SGPT). Due on due Goal UDT. Due on due Goal HAT STOCK LAMINATING MACHINE OPERATOR Paperwork. Due on due Goal AST (SGOT). Due on due Goal Review Allergy List. Due on due Goal PHQ-9. Due on du e Goal FIT. Due on due Goal FIT-DNA. Due on due Goal Height. Due on d ue Goal Weight. Due on d ue Goal PHQ-9. Due on du e Goal OARS. Due on due Goal LADLE FILLER Scanned. Due on due Goal AST (SGOT). Due on due Goal Unhealthy drug use screening . Due on due Goal CT-Colonography. Due on due Goal Review Allergy List. Due on due Goal HAT STOCK LAMINATING MACHINE OPERATOR Paperwork. Due on due Goal ALT (SGPT). Due on due Goal Order Annual PT. Due on due Goal Creatinine. Due on due Goal UDT. Due on due Goal Update Social History. Due o n due Goal Hepatitis C screening. Due o n due Goal Tobacco screening. Due on due Goal Medication Reconciliation. D ue on due Goal FIT. Due on due Goal Tobacco Use. Due on due Goal HPV. Due on due Goal ALT (SGPT). Due on due Goal CT-Colonography. Due on due Goal OARS. Due on due Goal UDT. Due on due Goal Creatinine. Due on due Goal Order Annual PT. Due on due Goal AST (SGOT). Due on due Goal LADLE FILLER Scanned. Due on due Goal HAT STOCK LAMINATING MACHINE OPERATOR Paperwork. Due on due Goal Tobacco screening. Due on due Goal FIT. Due on due Goal Hepatitis C screening. Due o n due Goal Tobacco Use. Due on due Goal Review Allergy List. Due on due Goal Height. Due on d ue Goal Weight. Due on d ue Goal PHQ-9. Due on du e Goal FIT-DNA. Due on due Goal Medication Reconciliation. D ue on due Goal HPV. Due on due Goal Unhealthy drug use screening . Due on due Goal Update Social History. Due o n due Goal Creatinine. Due on due Goal Order Annual PT. Due on due Goal HAT STOCK LAMINATING MACHINE OPERATOR Paperwork. Due on due Goal UDT. Due on due Goal AST (SGOT). Due on due Goal LADLE FILLER Scanned. Due on due Goal ALT (SGPT). Due on due Goal OARS. Due on due Goal Hepatitis C screening. Due o n due Goal Weight. Due on d ue Goal Tobacco Use. Due on due Goal FIT. Due on due Goal Height. Due on d ue Goal Unhealthy drug use screening . Due on due Goal PHQ-9. Due on du e Goal CT-Colonography. Due on due Goal Update Social History. Due o n due Goal Tobacco screening. Due on due Goal Medication Reconciliation. D ue on due Goal Review Allergy List. Due on due Goal FIT-DNA. Due on due Goal HPV. Due on due Goal Tobacco screening. Due on due Goal Height. Due on d ue Goal ALT (SGPT). Due on due Goal AST (SGOT). Due on due Goal HAT STOCK LAMINATING MACHINE OPERATOR Paperwork. Due on due Goal Order Annual PT. Due on due Goal UDT. Due on due Goal LADLE FILLER Scanned. Due on due Goal OARS. Due on due Goal Creatinine. Due on due Goal Hepatitis C screening. Due o n due Goal Weight. Due on d ue Goal Medication Reconciliation. D ue on due Goal FIT. Due on due Goal PHQ-9. Due on du e Goal Unhealthy drug use screening . Due on due Goal HPV. Due on due Goal Update Social History. Due o n due Goal Tobacco Use. Due on due Goal CT-Colonography. Due on due Goal Review Allergy List. Due on due Goal FIT-DNA. Due on due Goal ALT (SGPT). Due on due Goal Medication Reconciliation. D ue on due Goal HPV. Due on due Goal Tobacco Use. Due on due Goal Hepatitis C screening. Due o n due Goal Tobacco screening. Due on due Goal Weight. Due on d ue Goal PHQ-9. Due on du e Goal FIT-DNA. Due on due Goal FIT. Due on due Goal Review Allergy List. Due on due Goal CT-Colonography. Due on due Goal Update Social History. Due o n due Goal Height. Due on d ue Goal Unhealthy drug use screening . Due on due Goal Creatinine. Due on due Goal HAT STOCK LAMINATING MACHINE OPERATOR Paperwork. Due on due Goal Order Annual PT. Due on due Goal UDT. Due on due Goal LADLE FILLER Scanned. Due on due Goal OARS. Due on due Goal AST (SGOT). Due on due Goal CT-Colonography. Due on due Goal PHQ-9. Due on du e Goal Hepatitis C screening. Due o n due Goal Tobacco Use. Due on due Goal FIT. Due on due Goal ALT (SGPT). Due on due Goal AST (SGOT). Due on due Goal OARS. Due on due Goal Creatinine. Due on due Goal UDT. Due on due Goal Order Annual PT. Due on due Goal HAT STOCK LAMINATING MACHINE OPERATOR Paperwork. Due on due Goal LADLE FILLER Scanned. Due on due Goal Update Social History. Due o n due Goal FIT-DNA. Due on due Goal Tobacco screening. Due on due Goal Review Allergy List. Due on due Goal HPV. Due on due Goal Height. Due on d ue Goal Unhealthy drug use screening . Due on due Goal Weight. Due on d ue Goal Medication Reconciliation. D ue on due Goal Update Social History. Due o n due Goal Weight. Due on d ue Goal Height. Due on d ue Goal PHQ-9. Due on du e Goal Tobacco Use. Due on due Goal UDT. Due on due Goal LADLE FILLER Scanned. Due on due Goal Creatinine. Due on due Goal ALT (SGPT). Due on due Goal Order Annual PT. Due on due Goal HAT STOCK LAMINATING MACHINE OPERATOR Paperwork. Due on due Goal OARS. Due on due Goal AST (SGOT). Due on due Goal Medication Reconciliation. D ue on due Goal Review Allergy List. Due on due Goal LADLE FILLER Scanned. Due on due Goal UDT. Due on due Goal Creatinine. Due on due Goal ALT (SGPT). Due on due Goal Order Annual PT. Due on due Goal HAT STOCK LAMINATING MACHINE OPERATOR Paperwork. Due on due Goal OARS. Due on due Goal AST (SGOT). Due on due Goal Creatinine. Due on due Goal OARS. Due on due Goal UDT. Due on due Goal Order Annual PT. Due on due Goal HAT STOCK LAMINATING MACHINE OPERATOR Paperwork. Due on due Goal ALT (SGPT). Due on due Goal AST (SGOT). Due on due Goal LADLE FILLER Scanned. Due on due Goal Tobacco Use. Due on due Goal PHQ-9. Due on du e Goal Height. Due on d ue Goal Weight. Due on d ue Goal Update Social History. Due o n due Goal Review Allergy List. Due on due Goal Medication Reconciliation. D ue on due Goal Tobacco Use. Due on 021 due Goal PHQ-9. Due on du e Goal Height. Due on d ue Goal Weight. Due on d ue Goal Update Social History. Due o n due Goal Review Allergy List. Due on due Goal Medication Reconciliation. D ue on due Appointment Tram Kay BOOKED Appointment Tram Kay - [employer] [facility] CARVER History Of Present Illness Encounter Date Complaint History Of Prese nt Illness Comments: Tram pr esents for post -op follow up for Lumbar SCS-implant on 03/21/25 with moderate relief but pt reports experiencing overstimulation in ribs and will be reprogramming device today. Her acute post-op pain has somewhat improved since POLLO but continues to be bothersome. Discussed switching Celebrex for temporary Toradol script; pt agrees. Reports mid-line incision painful when laying on her backDenies endorsing fever or chills. Denies having any other concerns today. low back pain Duration: chroni c. Location of pain is lower back. Comments: Tram pr esents for SCS-implant post follow up today.She is s/p SCS implant on 03/21/25 and recovering well. Pt aware [employer] will be educating her and turning SCS on today. Denies endorsing fever or chills. Denies having any other concerns today. low back pain Duration: chroni c. low back pain Duration: chroni c. marleny Guo is a 51 year old female with complaints of severe chronic lower back pain that has been around for over 20 years. She reports a history of surgery in 2005 and 2007 with ongoing pain since that time. Pain is a steady pain all the time and radiating pain down the right leg. Pain is located in the center of the lumbar spine and over to the right buttock and leg. Pain at times goes to her foot. Does report the more activity she does the more pain she will have down her leg. Pain is aggravated by bending lifting walking standing and prolonged sitting. Patient reports some relief with lying on her back with heat and medications. Patient has had may interventions including PT numerous times. Tries to perform a home exercise program including stretching but finds it is a hit or miss on some days due to the pain. She tries to walk about a half mile a couple of times a week but that causes significant increase in pain. Pain limits director of transportation, grocery shopping, community mobility lifting and twisting activity. Pain also limits her sleep. Patient is hopeful a SCS will help her tolerate her daily activity with less limitation. . Comments: Tram, [age]-year-old female, presents today in clinic for follow-up in regards to low back pain.- Persistent back pain since 2004, with pain rated at 7 out of 10.- Pain primarily in the right low back, extending down into the right leg.- Pain exacerbated by various activities, relieved somewhat by heat, laying down, medication, rest, and sitting.- Underwent physical therapy with approximately 10 visits, discharged 3 to 4 years ago.- Had epidural procedures, with the last one not providing relief.- Previous spinal surgeries at L4-5 and L5-S1 with fusions in 2005 and 2007.- Last imaging scan from 2012, with a new scan scheduled.- Pain predominantly on the right side with occasional sciatica.- No significant pain on the left side.- Pain worsens when leaning back. low back pain It occurs persis tently. low back pain Severity level i s 5. Duration: chronic. The problem is stable. It occurs persistently. Location of pain is lower back.The patient describes the pain as an ache and sharp. Symptoms are aggravated by ascending stairs, bending, descending stairs, lifting, standing, twisting, housework and prolonged positioning. Symptoms are relieved by heat, lying down, massage, pain meds/drugs, sitting, TENS and changing positions. low back pain (comments) Tram is here for a followup after initial consult for medical cannabis certification. Low back pain persists.No other concerns today. 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 S/P lumbar fusion unknown levels 2005. The pain radiate down her right leg, no radiation in the left. The pain fluctuates from day to day depending on weather and activity. Overall the pain has persisted without change. She describes the pain as a constant aching pain with intermittent sharp pain triggered by twisting and movement.Referred by Dr. Garcia for medial cannabis.Treatment Tried:FRANKLIN - not helpfulPT in 2018, continue HEPgabapentin 600mg TID- helpful.tramadol 50mg 2tab TID- helpful.Cymbalta 60mg QD - helpful.Pt goal: [facility] to take over pain management. low back pain Severity level i s 5. Duration: chronic. It occurs persistently. Location of pain is lower back.The patient describes the pain as an ache. Symptoms are aggravated by ascending stairs, bending, descending stairs, lifting, running, standing, twisting and housework. Symptoms are relieved by heat, lying down, massage, pain meds/drugs and sitting. Functional Status Date Functional Assessmen t No Information Instructions Date Instruction Additional Infor mation No Information Assessments Type Assessment Date assessment Radiculopathy, lumbar region Mar assessment Postlaminectomy syndrome, not el sewhere classified Patient Care Teams Name Effective Dates (start - stop) Status Members No Information
[2025-04-20 17:11] VITALS: BP 144/81; PULSE 81; RESP 16; TEMP 36.8; O2SAT 99
--- NOTE | 2025-04-20 17:37 | ED.GENADULT ---
HPI - General Adult General Chief complaint: Dizziness/Vertigo Stated complaint: Dizziness Time Seen by Provider: 04/20/25 17:31 History of Present Illness HPI narrative: Patient presents to the emergency department complaining of dizziness. Patient states this has been going on intermittently for about 2 weeks. Patient states dizziness is not a lightheaded feeling but more of a room spinning type dizziness. Patient states she had a spinal stimulator put in about 4 weeks ago as well. 65-year-old woman presenting to the emergency department with concern of dizziness. Can have episodes not necessarily associated with movement but otherwise it is reliably associated with movement where she has been feeling dizzy. No chest pain or shortness of breath. No irregular heartbeats noted. No focal weakness. No visual loss. Has vomited a couple times and is nauseated currently. No fever. No swelling in area of procedure. Without significant headache. May have started as went to get up one morning. Related Data Home Medications ?Medication ?Instructions ?Recorded ?Confirmed acetaminophen 650 mg 650 mg PO 5XD PRN 04/20/25 04/20/25 tablet,extended release celecoxib 200 mg capsule 200 mg PO BID 04/20/25 04/20/25 pregabalin 75 mg capsule 75 mg PO BID 04/20/25 04/20/25 tramadol 50 mg tablet 50 mg PO Q4H PRN pain 04/20/25 04/20/25 Previous Rx's ?Medication ?Instructions ?Recorded diazepam 5 mg tablet (Valium) 5 mg PO BID PRN #6 tabs 04/20/25 meclizine 25 mg tablet 25 mg PO TID #15 tabs 04/20/25 Allergies Allergy/AdvReac Type Severity Reaction Status Date / Time No Known Drug Allergies Allergy Verified 04/20/25 17:17 Review of Systems Status of ROS: Reports: 6 or more systems reviewed and unremarkable except as noted in History and below Exam Narrative: Exam Narrative: Very pleasant. Looks tired. Looks like she does not feel very well. Moving extremities with good strength. No reported new loss of sensation. Examination of the back is without swelling or erythema. No midline back tenderness. Cranial nerves 2-12 are intact. Pupils are 3 mm and equal. Briskly reactive. Rotational movement of her head to the left causes dizziness. Head is atraumatic. Neck is supple. Heart in regular rate and rhythm. Extremities without edema. Well-perfused. Later Marlyn-Hallpike producing significant nystagmus to the left and trace to the right. More symptomatic to the left as well Const: Vital Signs, click to edit/add: Vital Signs - 24 hr 04/20/25 17:11 Temperature 98.2 F Pulse Rate [Right Pulse Oximeter] 81 Respiratory Rate 16 Blood Pressure [Ri ght Upper Arm] 144/81 H Pulse Oximetry 99 Oxygen Delivery Me thod Room Air Documenting provider has reviewed patient's vital signs: yes Course Vital Signs Vital signs: Initial Vital Signs Temperature 98.2 F 04/20/25 17:11 Temperature Source Temporal Artery Scan 04/20/25 17:11 Pulse Rate 81 04/20/25 17:11 Pulse Rhythm Regular 04/20/25 17:11 Pulse Strength 3+ Normal 04/20/25 17:11 Respiratory Rate 16 04/20/25 17:11 Blood Pressure 144/81 H 04/20/25 17:11 Blood Pressure Mean 102 04/20/25 17:11 Blood Pressure Position Sitting 04/20/25 17:11 Pulse Oximetry 99 04/20/25 17:11 Oxygen Delivery Method Room Air 04/20/25 17:11 Vital Signs Temperature 98.2 F 04/20/25 17:11 Pulse Rate 81 04/20/25 17:11 Respiratory Rate 16 04/20/25 17:11 Blood Pressure 144/81 H 04/20/25 17:11 Pulse Oximetry 99 04/20/25 17:11 Oxygen Delivery Method Room Air 04/20/25 17:11 Temperature 98.2 F 04/20/25 17:11 Pulse Rate 81 04/20/25 17:11 Respiratory Rate 16 04/20/25 17:11 Blood Pressure 144/81 H 04/20/25 17:11 Pulse Oximetry 99 04/20/25 17:11 Oxygen Delivery Method Room Air 04/20/25 17:11 Medications Administered Medications: Discontinued Medications Generic Name Dose Route Start Last Admin Trade Name Srinivasanq PRN Reason Stop Dose Admin Diazepam 5 mg 04/20/25 18:31 04/20/25 18:37 Diazepam 5 Mg Tablet PO 04/20/25 18:32 5 mg ONCE ONE Administration Medical Decision Making MDM Narrative Medical decision making narrative: Appears to have peripheral vertigo. I do not think symptoms represent potential malfunction of this stimulator nor are related to it. Does not appear to have secondary indication infection otherwise. Is not having significant worsening pain since her surgery. I do not think this represents a central process. Could be an arrhythmia. 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 EKG is without apparent arrhythmia. See below. Will test with dose of diazepam. I did discuss this case with on-call Stroke Neuro. In agreement this is likely peripheral particularly with reproducibility of Marlyn-Hallpike in this manner. Monitored on cardiac and oximetry during time in the emergency department without event. On reassessment is significantly improved though dizziness still little reproducible. Feels better and that could manage at home. See patient discharge plan for further discussion See handout on Rick maneuvers. Focus on the left ear although the right might also be appropriate to do based on the [place]-Hallpike maneuvers we tested here today. If you are noticing new and focal weakness or dizziness that just simply isn't resolving after period of time of not moving, consider returning to the emergency department. If you are not improved at all in a week, would consider making an appointment with <del>her</del> (your) primary care provider so that you might get an appointment perhaps with physical therapy. There is a [facility] here in [facility]. And prescribing some meclizine that you can take 3 times daily over the next 4-5 days as long as it is not making you to tired. Otherwise for more intense symptoms, a few tabs of Valium also known as diazepam as discussed. Medical Records Medical records reviewed: Yes I reviewed the patient's medical records ECG Data Attestation: I personally reviewed and interpreted this ECG as follows: (Normal sinus rhythm. Rate of 71) Discharge Plan Discharge Clinical Impression: Benign paroxysmal positional vertigo Patient Disposition: Home w/ Parent or Adult Condition: Improved Additional Instructions: See handout on Rick maneuvers. Focus on the left ear although the right might also be appropriate to do based on the [place]-Hallpike maneuvers we tested here today. If you are noticing new and focal weakness or dizziness that just simply isn't resolving after period of time of not moving, consider returning to the emergency department. If you are not improved at all in a week, would consider making an appointment with her primary care provider so that you might get an appointment perhaps with physical therapy. There is a [facility] here in [facility]. And prescribing some meclizine that you can take 3 times daily over the next 4-5 days as long as it is not making you to tired. Otherwise for more intense symptoms, a few tabs of Valium also known as diazepam as discussed. Prescriptions: New diazepam [Valium] 5 mg tablet 5 mg PO BID PRNQty: 6 0RF meclizine 25 mg tablet 25 mg PO TID Qty: 15 0RF No Action celecoxib 200 mg capsule 200 mg PO BID tramadol 50 mg tablet 50 mg PO Q4H PRN (Reason: pain) acetaminophen 650 mg tablet extended release 650 mg PO 5XD PRN pregabalin 75 mg capsule 75 mg PO BID Follow Up/Referrals: Nathalie Mora MD [Primary Care Provider, Family Practice] Stand Alone Forms: [employer] Info Instructions
--- OUTSIDE RECORDS SUMMARY | 2025-04-20 17:57 | XMS_ITS | Clinical Summary ---
Author Organization [employer] [facility] Address [address] [place] [address] Care Team Providers Care Senior Fund Accountant Name Role Phone Nathalie Mora MD Primary Care Provide r Allergies No known active allergies Medications multivitamin (MVI) tablet Take 1 tablet by mouth once daily. 0 012 Active MAPAP ARTHRITIS PAIN 650 mg Extended-Release tabletIndication s:DDD (degenerative disc disease), lumbar TAKE 2 TABLETS BY MOUTH EVERY 8 HOURS IF NEEDED FOR PAIN. MAX ACETAMINOPHEN DOSE: 4000MG IN 24 HRS. 180 tablet 018 Active resveratrol 100 mg capIndications:L umbosacral spondylosis without myelopathy Take 1 Cap by mouth. 30 capsule 5 018 Active turmeric-herbal complex no.278 150 mg capIndications:L umbosacral spondylosis without myelopathy Take by mouth. 30 Cap 5 018 Active lidocaine 5 % topical patchIndications :Lumbosacral spondylosis without myelopathy APPLY TO INTACT SKIN TO COVER MOST PAINFUL AREA FOR MAX 12HR PER 24HR PERIOD. 60 Patch 5 025 Active traZODone (DESYREL) 50 mg tabletIndication s:S/P spinal fusion,Lumbosacr al spondylosis without myelopathy Take 2 Tablets (100 mg) by mouth at bedtime if needed for Sleep. 180 Tablet 1 025 Active pregabalin (LYRICA) 100 mg capsuleIndicatio ns:S/P spinal fusion,Lumbosacr al spondylosis without myelopathy Take 1 Capsule (100 mg) by mouth three times daily. 90 Capsule 1 025 Active celecoxib (CELEBREX) 200 mg capsuleIndicatio ns:S/P spinal fusion,Lumbosacr al spondylosis without myelopathy Take 1 Capsule (200 mg) by mouth two times daily with meals. 180 Capsule 025 Active DULoxetine (CYMBALTA) 60 mg Delayed-release capsuleIndicatio ns:S/P spinal fusion,Lumbosacr al spondylosis without myelopathy Take 1 Capsule (60 mg) by mouth once daily. 90 Capsule 5 025 Active traMADoL (ULTRAM) 50 mg tabletIndication s:S/P spinal fusion,Lumbosacr al spondylosis without myelopathy TAKE 1 TABLET (50 MG) BY MOUTH EVERY 4 HOURS IF NEEDED FOR PAIN. 180 Tablet 025 Active acetaminophen SR (TYLENOL ARTHRITIS) 650 mg Extended-Release tabletIndication s:Lumbosacral radiculopathy at S1 TAKE 1 TABLET BY MOUTH 5 TIMES DAILY NEEDED. MAX ACETAMINOPHEN DOSE: 4000MG IN 24 HRS. 150 Tablet 5 025 Active pantoprazole (PROTONIX) 40 mg delayed-release tabletIndication s:Gastritis medicamentosa TAKE 1 TABLET BY MOUTH TWICE A DAY 180 Tablet 2 025 Active pantoprazole 40 mg delayed-release tabletIndication s:Gastritis medicamentosa TAKE 1 TABLET BY MOUTH TWICE A DAY 180 Tablet 1 025 2024 Discontinued Active Problems Problem Noted Date Diagnosed Date Controlled substance agreement signed 04-13-12 E RX sp 04/16/2014 Overview (08/17/2019): Prescriber: Dr. Soren Rizo, [facility] Nathalie Mora MD Tradadol as prescribed. Ok to fill at same amount/dose/frequency in my absence. Controlled substance agreement updated on 03/2014 OB/GYN DOCTOR reviewed on 04/07/19 was appropriate Last UDS 02/22/19 Lumbar radiculopathy at S1 from scar tissue 12/2012 Adjustment disorder with depressed mood 07/09/19 11 DDD of L3-4 above the fusion 08/14/2009 Facet arthropathy bilateral L3-4 08/14/2009 L4-Sacrum Fusion 03/2006; Hardware removal 5/200 8 05/13/2009 Unspecified essential hypertension 09/17/2006 Other specified gastritis without mention of hem orrhage 09/17/2006 Pain in joint, lower leg 09/17/2006 Overview (09/17/2006): W/C , right knee Resolved Problems Problem Noted Date Diagnosed Date Resolved Date Lumbago 04/20/2014 Overview (09/17/2006): W/C, DOI [id number]; L 4-5, L5-S1 disc disruption with annular tear Encounters Date Type Department Care Team Description 04/20/2025 Nurse Triage [address] [address] Nathalie Mora MD Vertigo 04/05/[address] [address] Nathalie Mora MD Refill Request (Pantoprazole) 03/10/[address] [address] Soren Rizo MD Refill Request (Acetaminophen Sr) 03/04/[address] [address] Soren Rizo MD Refill Request (Tramadol) 02/23/2025 12:10 PM CDT Office Visit [address] [address] Nathalie Mora MD Preoperative Exam (03/21, Spinal cord stimulator, [facility] [place], Dr Curly Sanchez ) 02/23/2025 Travel [address] [address] Nathalie Mora MD Appointment Request 02/06/[address] [address] Soren Rizo MD Prior Authorization (lidocaine 5 % topical patch Approved January 23, 2025 to May 30, 2099) 02/04/2025 Refill [facility] [address] [place] [address] Soren Rizo MD Refill Request (Acetaminophen Sr) 01/31/2025 10:00 AM CDT Office Visit [facility] [address] [place] [address] Soren Rizo MD Occ Med (Follow up back pain, Has Stimulator) 01/31/2025 Refill [facility] [address] [place] [address] Soren Rizo MD Refill Request (Lidocaine) 01/30/2025 Travel from Last 3 Months Immunizations Immunization Administration Dates Next Due COVID-19 vaccine (Moderna 50 mcg/0.5mL) 12YO+ BIVALENT PF MDV 04/26/2024 Influenza, CCIIV3 (Age >=6 M O) (Egg Free) 05/13/2015 Influenza, IIV3 (Age >=3 years) 05/17/2024,04/29,03/12/2014 Influenza, IIV4 04/18/2022,,03/16/2020,03/04,03/23/2017 Influenza,CCIIV4 PRESERV FREE 03/07/2023, 018 Pneumococcal Conj 20-valent (Prevnar 20) 04/26/2024 RSV, Recombinant ADJ Reconst ituted (Arexvy 120MCG/0.5mL) 03/07/2023 Td (Age >=7 Years) 06/27/1999 Tdap 06/20/2024,12/21/2009 Zoster (Shingrix-RZV, recombinant) 09/17/2023, Family History Medical History Relation Name Comments Psychiatric illness Father prostate cancer Hyperlipidemia Mother Hypertension Mother Cancer-breast No Family History Relation Name Status Comments Brother Alive Daughter Alive Father (Age 67) Mother Alive Son 1 Alive Son 2 Alive Social History Tobacco Use Types Packs/Day Years Used Date Smoking Tobacco: Never Smokeless Tobacco: Never Tobacco Cessation:Counseling Given: Yes Alcohol Use Standard Drinks/Week Comments No 0 (1 standard drink = 0.6 oz pur e alcohol) PHQ-2 Answer Date Recorded PHQ-2 TOTAL SCORE 4 06/20/2024 Social Connections Answer Date Recorded Do you often feel lonely or isolated from those around you? 0 06/20/2024 Financial Resource Strain Answer Date R ecorded Difficulty of Paying Living Expenses 3 06/20/2024 Difficulty of Paying Living Expenses Not on file 06/20/2024 Food Insecurity Answer Date Recorded Do you worry your food will run out before you are able to buy more? 1 06/20/2024 Transportation Needs Answer Date Record ed Does lack of transportation keep you from medica l appointments? 1 06/20/2024 Does lack of transportation keep you from work, meetings or getting things that you need? 1 06/20/2024 Housing Stability Answer Date Recorded What is your housing situation today? 1 06/20/2024 Utilities Answer Date Recorded Do you have trouble paying f or utilities (for example, heat, electricity, water, phone)? 1 06/20/2024 Comments No Sex and Gender Information Value Date Recorded Sex Assigned at Not on file Legal Sex Female 5:27 AM CHIEF OPERATING OFFICER Gender Identity Not on file Sexual Orientation Not on file Occupation Industry Job Start Date Job End Date [employer] Not on file Not on file Not on emely e Obstetrics History Para Term AB IAB SAB Ectopic Multiple Livin g Live Births 1 1 Date Outcome GA Total Labor Labor/2nd/3rd Weight Sex Type Anes PTL Merlyn A1 A5 Name Clin Para Last Filed Vital Signs Vital Sign Reading Time Taken Comments Blood Pressure 122/82 02/23/2025 1:10 PM CDT Man ual Pulse 75 02/23/2025 12:44 PM CDT Temperature 36.7 C (98 F) 02/23/2025 12:44 PM CDT Respiratory Rate 16 10/12/2007 7:54 AM CDT Oxygen Saturation 95% 02/23/2025 12:44 PM CDT Inhaled Oxygen Concentration - - Weight 91.2 kg (201 lb 1.6 oz) 02/23/2025 12:44 PM CDT Height 163.2 cm (5' 4.25) 02/23/2025 12:44 PM C DT Body Mass Index 34.25 02/23/2025 12:44 PM CDT Plan of Treatment Upcoming Encounters Date Type Department Care Team (Late st Contact Info) Description 05/28/2025 10:40 AM CHIEF OPERATING OFFICER Office Visit [facility] [address] [place] [address] Soren Rizo MD [address] [place] [address] Health Maintenance Due Date Last Done Comments Influenza Vaccine (#1) 2025 4, 03/07/2023, 04/18/2022, Additional history exists Depression screening for age 12+ 06/22/2025 06/22/2024, 06/20/2024, 07/08/2017, Additional history exists Mammogram for age 45-75 06/28/2025 06/28/19 25, 06/20/2024, 07/13/2017, Additional history exists BMI (ht and wt on same day) for age 18+ 02/23/2026 02/23/2025, 06/20/2024, 06/15/2022, Additional history exists Pap test for age 21-65 06/20/2027 5, 06/20/2024, 12/28/2008, Additional history exists Fecal testing sDNA-FIT (Cologuard) for age 45-75 06/28/2027 06/28/2024 Lipids for age 45-75 06/20/2029 06/20/2024, 07/08/2017, 01/20/2011, Additional history exists Tetanus booster 06/20/2034 06/20/2024, 11/29, 06/27/1999 RSV vaccine for adults or Completed 03/07/2023 Zoster (shingles) series for age 50+ Completed 09/17/2023, 05/26/2023 Pneumococcal series for age 50+ Completed 04/26/2024 HIV for age 15-65 Completed 06/20/2024 Hepatitis C screening for age 18-79 Completed 06/20/2024 Hepatitis B series for 19+ Aged Out N o longer eligible based on patient's age to complete this topic Medical Devices Implanted Type Area Insurance Billing Clerk Device Identifier Shelf Expiration Date Model / Serial / Lot [id number] Implanted:Qty: 1 on 04/06/[address] [facility] Explanted:at [facility] (Quantity not on file) Spine [employer] 12/14/2010 [id number] / [id number] / Description:CRUSHED 30CC Torie Sailaja [id number] - [id number] Implanted:Qty: 6 on 04/06/[address] [facility] Spine [employer] [id number] / / [id number] Precision 14x26 Fz [[id number]] Implanted:Qty: 1 on 04/06/[address] [facility] Explanted:at [facility] (Quantity not on file) Spine [employer] 01/25/2011 [id number]# / [id number] / [id number] ne Canclls Crushed 30cc [[id number]] Implanted:Qty: 1 on 04/06/[address] [facility] Explanted:at [facility] (Quantity not on file) Spine [employer] 12/14/2010 [id number]# / [id number] / [id number] Precision 14x26 Fz [[id number]] Implanted:Qty: 1 on 04/06/[address] [facility] Explanted:at [facility] (Quantity not on file) Spine [employer] 02/15/2011 [id number]# / [id number] / Honorio Sow Md - [id number] Implanted:Qty: 1 on 04/06/[address] [facility] Spine [employer]ANEK [id number]# / / [id number] Screw Polyaxial 6.5x35mm - [id number] Implanted:Qty: 2 on 04/06/[address] [facility] Spine [facility] [id number]# / / Screw Polyaxial 6.5x40mm - [id number] Implanted:Qty: 3 on 04/06/[address] [facility] Spine [employer] [id number]# / / Screw Polyaxial 6.5x45mm - [id number] Implanted:Qty: 1 on 04/06/[address] [facility] Spine [employer] [id number]# / / Alverto Sailaja Rad 60mm 108mm Radius - [id number] Implanted:Qty: 2 on 04/06/[address] [facility] Spine [facility] [id number]# / / Procedures Procedure Name Priority Date/Time Associated Diagnosis Comments SDNA-FIT EXTERNAL (COLOGUARD) Routine 06/28/2024 8:40 PM CHIEF OPERATING OFFICER Screening for colon cancer XR MAMMO ALYSHA UNI ADDL VIEWS LEFT SERGEI 06/28/2024 2:43 PM CHIEF OPERATING OFFICER Abnormal mammogram ANTI HIV 1/2 Routine 06/20/2024 10:36 AM CHIEF OPERATING OFFICER Screening for HIV (human immunodeficiency virus) ANTI HCV Routine 06/20/2024 10:36 AM CHIEF OPERATING OFFICER Encounter for hepatitis C screening test for low risk patient LIPID PANEL W REFLEX MEASURED LDL Routine 06/20/2024 10:36 AM CHIEF OPERATING OFFICER Lipid screening HPV HIGH RISK Routine 06/20/2024 10:35 AM CHIEF OPERATING OFFICER Screening for cervical cancer from Last 3 Months or Most Recently Relevant to Health Maintenance Results * SDNA-FIT EXTERNAL (COLOGUARD) (06/28/2024 8:40 PM CHIEF OPERATING OFFICER) NONINV COLON CA DNA+OCC BLD SCRN STL-IMP Negative Negative 07/06/2024 9:58 AM CHIEF OPERATING OFFICER [facility] (CLIA #:[id number]) Comment: NEGATIVE TEST RESULT. A negative Cologuard result indicates a low likelihood that a colorectal cancer (CRC) or advanced adenoma (adenomatous polyps with more advanced pre-malignant features) is present. The chance that a person with a negative Cologuard test has a colorectal cancer is less than 1 in 1500 (negative predictive value >99.9%) or has an advanced adenoma is less than 5.3% (negative predictive value 94.7%). These data are based on a prospective cross-sectional study of 10,000 individuals at average risk for colorectal cancer who were screened with both Cologuard and colonoscopy. (Celina Carrero al, N Engl J Med 2014;370(14):1545-6216) The normal value (reference range) for this assay is negative. COLOGUARD RE-SCREENING RECOMMENDATION: Periodic colorectal cancer screening is an important part of preventive healthcare for asymptomatic individuals at average risk for colorectal cancer. Following a negative Cologuard result, the [place] [employer] Society and U.S. Multi-Society Task Force screening guidelines recommend a Cologuard re-screening interval of 3 years. References: [place] [employer] Guideline for Colorectal Cancer Screening: https://www.cancer.org/cancer/qicrm-vkhono-jtbazd/bnsanbfoo-xvsxzhbol-oqzemuq/ac s-rec ommendations.html.; Lucian DK, Wendy CR, Tre StylesK, Colorectal Cancer Screening: Recommendations for Physicians and Patients from the U.S. Multi-Society Task Force on Colorectal Cancer Screening , Am J Gastroenterology 2017; 112:9276-4654. TEST DESCRIPTION: Composite algorithmic analysis of stool DNA-biomarkers with hemoglobin immunoassay. Quantitative values of individual biomarkers are not reportable and are not associated with individual biomarker result reference ranges. Cologuard is intended for colorectal cancer screening of adults of either sex, 45 years or older, who are at average-risk for colorectal cancer (CRC). Cologuard has been approved for use by the U.S. FDA. The performance of Cologuard was established in a cross sectional study of average-risk adults aged 50-84. Cologuard performance in patients ages 45 to 49 years was estimated by sub-group analysis of near-age groups. Colonoscopies performed for a positive result may find as the most clinically significant lesion: colorectal cancer [4.0%], advanced adenoma (including sessile serrated polyps greater than or equal to 1cm diameter) [20%] or non- advanced adenoma [31%]; or no colorectal neoplasia [45%]. These estimates are derived from a prospective cross-sectional screening study of 10,000 individuals at average risk for colorectal cancer who were screened with both Cologuard and colonoscopy. (Celina Carrero al, N Engl J Med 2014;370(14):6758-9733.) Cologuard may produce a false negative or false positive result (no colorectal cancer or precancerous polyp present at colonoscopy follow up). A negative Cologuard test result does not guarantee the absence of CRC or advanced adenoma (pre-cancer). The current Cologuard screening interval is every 3 years. ([place] [employer] Society and U.S. Multi-Society Task Force). Cologuard performance data in a 10,000 patient pivotal study using colonoscopy as the reference method can be accessed at the following location: www.[employer].AMERICAN PET RESORT/results. Additional description of the Cologuard test process, warnings and precautions can be found at www.cologuard.com. Stool specimen (specimen) (Rectum) 06/28/2024 8:40 PM CHIEF OPERATING OFFICER 06/30/2024 12:21 PM CHIEF OPERATING OFFICER us Nathalie Mora MD URINE Final Result [facility] (CLIA #:[id number]) [place] [address], * XR MAMMO ALYSHA UNI ADDL VIEWS LEFT (06/28/2024 2:43 PM CHIEF OPERATING OFFICER) Anatomical Region Laterality Modality BREASTS, Breast Left Mammography 06/28/2024 3:29 PM CHIEF OPERATING OFFICER Impressions 06/28/2024 3:56 PM CHIEF OPERATING OFFICER Benign fibrocystic changes. No evidence of malignancy. RECOMMENDATIONS: Routine screening mammography. Results and recommendations were discussed with the patient at the time of the exam. BI-RADS Category 2: Benign Dictated by: Meng Pearson MD @06/28/2024 3:29:11 PM/kyle PATIENTS: You will also receive a letter with your examination results in an easy to read format. If you have questions about your results, please contact your referring provider. Narrative 06/28/2024 3:56 PM CHIEF OPERATING OFFICER For Patients: As a result of the 21st Century Cures Act, medical imaging exams and procedure reports are released immediately into your electronic medical record. You may view this report before your referring provider. If you have questions, please contact your health care provider. ADDITIONAL VIEWS LEFT DIGITAL MAMMOGRAM USING TOMOSYNTHESIS, 06/28/2024 LEFT BREAST ULTRASOUND, 06/28/2024 CLINICAL HISTORY: LEFT breast mass/asymmetry. COMPARISON: 06/20/2024, 07/13/2017. TECHNIQUE: Digital LEFT mammogram in two projections. Tomosynthesis was used in this interpretation. Real-time ultrasound imaging of LEFT breast with imaging documentation. BREAST COMPOSITION: The breasts are heterogeneously dense, which may obscure small masses. FINDINGS: 3D spot compression CC/MLO LEFT breast mammogram images submitted. Persistent nodular densities within the retroareolar plane without architectural distortion. Benign calcifications are present. Targeted LEFT breast ultrasound performed. In the retroareolar region, posterior depth, 4 o'clock, there are two simple cysts measuring 8 x 8 x 7 millimeters and 7 x 7 x 8 millimeters. No suspicious findings. us Nathalie Mora MD MAMMO Final Result * (ABNORMAL) LIPID PANEL W REFLEX MEASURED LDL (06/20/2024 10:36 AM CHIEF OPERATING OFFICER) CHOLESTEROL, TOTAL 259(H) <200 mg/dL [facility] HDL CHOLESTEROL 46(L) > OR = 50 mg/dL [facility] TRIGLYCERIDES 369(H) <150 mg/dL [facility] Comment: If a non-fasting specimen was collected, consider repeat triglyceride testing on a fasting specimen if clinically indicated. Gray et al. J. of Clin. Lipidol. 2015;9:129-169. LDL-CHOLESTEROL 156(H) mg/dL (calc) [facility] Comment: Reference range: <100 Desirable range <100 mg/dL for primary prevention; <70 mg/dL for patients with CHD or diabetic patients with > or = 2 CHD risk factors. LDL-C is now calculated using the Luis-Asaf calculation, which is a validated novel method providing better accuracy than the Friedewald equation in the estimation of LDL-C. Luis IBANEZ et al. BENNY. 2013;310(19): 2692-1557 (http://education.BetBox.AMERICAN PET RESORT/faq/EJJ429) CHOL/HDLC RATIO 5.6(H) <5.0 (calc) [facility] NON HDL CHOLESTEROL 213(H) <130 mg/dL (calc) [facility] Comment: For patients with diabetes plus 1 major ASCVD risk factor, treating to a non-HDL-C goal of <100 mg/dL (LDL-C of <70 mg/dL) is considered a therapeutic option. Blood BLOOD SPECIMEN / Unknown 06/20/2024 10:36 AM CHIEF OPERATING OFFICER 06/20/2024 10:37 AM CHIEF OPERATING OFFICER Nathalie Mora MD CHEMISTRY Final Result Performing Organization Address [facility] de Phone Number [facility] [address] [place] [address], [facility] [address] [place] [address] * ANTI HCV (06/20/2024 10:36 AM CHIEF OPERATING OFFICER) Pathologist [facility] [place] HEPATITIS C ANTIBODY NON-REACTI VE NON-REACT ULICES [facility] Comment: HCV antibody was non-reactive. There is no laboratory evidence of HCV infection. In most cases, no further action is required. However, if recent HCV exposure is suspected, a test for HCV RNA (test code 76441) is suggested. For additional information please refer to http://education.Coinex-IO/faq/KQR54a4 (This link is being provided for informational/ educational purposes only.) Blood BLOOD SPECIMEN / Unknown 06/20/2024 10:36 AM CHIEF OPERATING OFFICER 06/20/2024 10:37 AM CHIEF OPERATING OFFICER Nathalie Mora MD SEND OUTS Final Result Performing Organization Address [facility] Co de Phone Number [facility] [address] [place] [address], [facility] [address] [place] [address] * ANTI HIV 1/2 (06/20/2024 10:36 AM CHIEF OPERATING OFFICER) Pathologist [facility] [place] HIV AG/AB, 4TH GEN NON-REACT ULICES NON-REACT ULICES [facility] Comment: HIV-1 antigen and HIV-1/HIV-2 antibodies were not detected. There is no laboratory evidence of HIV infection. PLEASE NOTE: This information has been disclosed to you from records whose confidentiality may be protected by state law. If your state requires such protection, then the state law prohibits you from making any further disclosure of the information without the specific written consent of the person to whom it pertains, or as otherwise permitted by law. A general authorization for the release of medical or other information is NOT sufficient for this purpose. For additional information please refer to http://education.Coinex-IO/faq/JPC839 (This link is being provided for informational/ educational purposes only.) The performance of this assay has not been clinically validated in patients less than 2 years old. Blood BLOOD SPECIMEN / Unknown 06/20/2024 10:36 AM CHIEF OPERATING OFFICER 06/20/2024 10:37 AM CHIEF OPERATING OFFICER Nathalie Mora MD SEND OUTS Final Result Performing Organization Address City/State/[facility] Co de Phone Number [facility] [address] [place] [address], [facility] [address] [address] * HPV HIGH RISK (06/20/2024 10:35 AM CHIEF OPERATING OFFICER) TYPE 16 Negative Negative 06/23/2024 2:11 PM CHIEF OPERATING OFFICER [facility] TRAL [facility] TYPE 18 Negative Negative 06/23/2024 2:11 PM CHIEF OPERATING OFFICER [facility] TRA LABORATORY OTHER HIGH RISK TYPES Negative Negative 06/23/2024 2:11 PM CHIEF OPERATING OFFICER [facility] Other (Cervical) Non-Blood / Unknown 06/20/2024 10:35 AM CHIEF OPERATING OFFICER 06/21/2024 9:12 AM CHIEF OPERATING OFFICER Narrative [facility] 06/23/2024 2:11 PM CHIEF OPERATING OFFICER HPV types 16, 18, 31, 33, 35, 39, 45, 51, 52, 56, 58, 59, 66 and 68 DNA were undetectable or below the pre-set threshold. Methodology: Crescentrating Ronit 4800 HPV Test us Nathalie Mora MD MICROBIOLOGY Final Result [facility] [address] [place] [address], from Last 3 Months or Most Recently Relevant to Health Maintenance Insurance MEDICARE PART B HB ONLY [place] BLUE HB ONLY [employer] PB ONLY [facility] Advance Directives * Full Code (Latest Code Status on File) Date Activated Date Inactivated Comments 10/11/2007 4:08 PM 10/12/2007 1:47 PM * Full Code Date Activated Date Inactivated Comments 10/11/2007 1:35 PM 10/11/2007 4:08 PM * Full Code Date Activated Date Inactivated Comments 06/17/2007 7:39 AM 06/17/2007 10:58 AM * Full Code Date Activated Date Inactivated Comments 04/06/2006 4:37 PM 04/11/2006 4:32 PM * Full Code Date Activated Date Inactivated Comments 04/06/2006 8:23 AM 04/06/2006 4:37 PM Care Teams Senior Fund Accountant Relationship Specialty Start Date End Date Nathalie Mora MD [address] [place] [address] PCP - General 10/23/05
== END 2025-04-20 18:52 | disposition home or self-care (01) ==
PROVIDERS: Emergency Provider Family Medicine; PCP Family Medicine
DX: H81.12 Benign paroxysmal vertigo, left ear (principal)
CPT/HCPCS: 93005; 99283; 99284